=== PATIENT | male | born 1955 | race Caucasian/White ===

== ENCOUNTER 2016-12-14 13:24 | Inpatient (IN) | payer OTHER ==
[~2016-12-14] VITALS: Ht 170.2 cm; Wt 70.3 kg
[~2016-12-14 13:24] MED LIST: ANDROGEL75 G1 TOP; ASPIRIN EC325 M2 PO; CYMBALTA60 M1 PO; FOLIC ACID1 M1 PO; METHADONE10 MG/5 M2 PO; THIAMINE HCL100 M1 PO; TRAZODONE HCL100 M1 PO
--- NOTE | 2016-12-14 13:45 | NUR ---
PT AWARE OF 2.5 HR WAIT
--- NOTE | 2016-12-14 13:52 | NUR ---
RECEIVED 61 YO MALE WITH HX OF ETOH C/O NAUSEA, VOMITING AND DIARRHEA X ONE WEEK. PT ON METHADONE PROGRAM AND HAS NOT BEEN THERE X 8 DAYS. CAREGIVER REPORTS SEVERE WEAKNESS AND MULTIPLE FALLS LAST FEW DAYS. HX OF TBI AND ETOH. NO SI/HI
--- NOTE | 2016-12-14 15:59 | NUR ---
PT ASSESSED BY DENIZ SPANGLER IN ROOM 19. AT BEDSIDE.
--- NOTE | 2016-12-14 16:07 | ED AMS/SEIZURE/WEAK/DIZZY ---
History of Present Illness General Chief Complaint: General Adult Stated Complaint: +NVD, WEAK, ETOH, X 1 WEEK Source: patient, friend (gUARDIAN) Exam Limitations: clinical condition Allergies Coded Allergies: Benzodiazepines (OK WITH SMALL DOSES UP TO 1-2MG Q6H PER PT 03/20/16) LARGE DOSES BUILD UP IN BODY, PT REPORTS ENDING UP ON THE FLOOR URINATING ON HIMSELF diphenhydramine (From BENADRYL) (PER PT FEELS LIKE HE'S CRAWLING OUT OF SKIN & AGITATION 03/20/16) Reconcile Medications Aspirin (Ecotrin*) 325 MG TABLET.DR 1 TAB PO DAILY HEART/BLOOD (Reported) Cholecalciferol (Vitamin D3) (Vitamin D) (Unknown Strength) TABLET (Unknown Dose) PO DAILY SUPPLEMENT (Reported) Folic Acid 1 MG TABLET 1 TAB PO DAILY supplement Gabapentin 300 MG CAPSULE 2 CAP PO TID NERVE PAIN (Reported) Methadone HCl 10 MG/5 ML SOLUTION 90 MG PO QAM PAIN/MENTAL HEALTH (Reported) Testosterone (Androgel) 75 GM GEL..PROCESS CONTROL MANAGER 1 ISAÍAS TOP DAILY HRT (Reported) Trazodone HCl 100 MG TABLET 1 TAB PO QPM SLEEP (Reported) Triage Note: RECEIVED 61 YO MALE WITH HX OF ETOH C/O NAUSEA, VOMITING AND DIARRHEA X ONE WEEK. PT ON METHADONE PROGRAM AND HAS NOT BEEN THERE X 8 DAYS. CAREGIVER REPORTS SEVERE WEAKNESS AND MULTIPLE FALLS LAST FEW DAYS. HX OF TBI AND ETOH. NO SI/HI Triage Nurses Notes Reviewed? yes HPI: This patient is a 61-year-old male with a past medical history including traumatic brain injury, alcohol dependency, and opiate dependency currently on methadone maintenance who presented to the emergency department today brought in by his guardian and friend for evaluation of multiple complaints. This patient is a poor historian at baseline and also seems to have a current mental status alteration. The patient's guardian was able to give a history. She reported that she typically checks in on this patient every other day or so. She reported that he is normally, "well groomed and oriented." She reported that she feels like he is very disoriented and agitated currently. She reported that she had not been provided check on him for a little bit of time because she herself was hurt. She reported that the patient recently had a close friend of his pass away, so he went on, "a monae," and was drinking more alcohol. Because of his alcohol consumption, he was not allowed to get his methadone doses. The patient's guardian reported that it has been at least 10 days since his last methadone dose. She reported that he has been going through withdrawals alone at home. She reported that she was giving him a little bit of alcohol to prevent any withdrawal or seizures as his last alcohol withdrawal seizure was approximately 2 years ago. She reported that he has been nauseous and vomiting approximately 2 times a day. However, she reported that he has not been eating much, so he retches otherwise. Several episodes of diarrhea over the last several days daily. No blood in the stool and no blood in the vomitus noted. The patient denied any headaches, visual changes, numbness or tingling in his extremities, chest pain, difficulty breathing, abdominal pain.THE PATIENT DID ALSO REPORT TACTILE FEVERS and intermittent chills. (PARMJIT SPANGLER PA-C) Vital Signs & Intake/Output Vital Signs & Intake/Output Vital Signs Date Time Temp Pulse Resp B/P Pulse O2 O2 Flow FiO2 Ox Delivery Rate 12/17 0016 98.5 92 20 160/100 95 Room Air 12/16 0800 98.0 80 24 120/70 93 Room Air ED Intake and Output 12/17 0000 12/16 1200 Intake Total 1300 100 Output Total 1000 300 Balance 300 -200 Intake, Oral 1300 100 Number 1 Bowel Movements Output, Urine 1000 300 Patient 155 lb Weight Past History Travel History Traveled to [place] past 21 day No Medical History Any Pertinent Medical History? see below for history Neurological: TBI EENT: NONE Cardiovascular: CARDIAC ABLASION Gastrointestinal: NONE Hepatic: NONE Renal: NONE Musculoskeletal: CHRONIC BACK PAIN Psychiatric: alcohol dependence, anxiety Endocrine: NONE Blood Disorders: NONE Cancer(s): NONE Surgical History Surgical History: hip replacement, spinal fusion Psychosocial History Who do you live with Spouse What is your primary language Montenegrin Tobacco Use: Current Daily Use Daily Tobacco Use Amount/Type: => 5 Cigarettes daily Family History Family History, If Any: MOTHER (Alzheimer's). FATHER (Heart disease). SISTER (Alcoholic and hypertension). Hx Contributory? Yes (PARMJIT SPANGLER PA-C) Review of Systems Review of Systems Constitutional: Reports: see HPI. EENTM: Reports: no symptoms. Respiratory: Reports: no symptoms. Cardiovascular: Reports: no symptoms. GI: Reports: see HPI. Genitourinary: Reports: no symptoms. Musculoskeletal: Reports: no symptoms. Skin: Reports: no symptoms. Neurological/Psychological: Reports: see HPI. All Other Systems: Reviewed and Negative (ANÍBAL SWANSON,PARMJIT) Physical Exam Physical Exam General Appearance: thin, DISHEVELED. oVERWEIGHT. aNXIOUS. iNTOXICATED Comments: Thin, disheveled male who is anxious and intoxicated HEENT: Head normocephalic, moist mucous membranes PERRLA bilaterally. Unable to track for evaluation of EOMI. No nystagmus noted Clear nasal drainage. Nose atraumatic Neck: Supple, no lymphadenopathy Back: Normal inspection Cardiovascular: Regular rate and rhythm with no murmurs, rubs, gallops. No carotid bruits Respiratory: Chest nontender. No respiratory distress. Breath sounds clear to auscultation bilaterally with no wheezes, rales, rhonchi. No diminished breath sounds Abdomen: Normoactive bowel sounds. Tympanic to percussion. Nondistended. Soft. Tenderness to palpation in the right upper quadrant with no rebound or guarding. No peritoneal signs. No McBurney's point tenderness Extremity: Normal and equal pulses. Neuro: Alert to person only. No aphasia. No facial droop. No unilateral weakness 5 out of 5 muscle strength in all extremities Skin: No appreciable rash on exposed skin, skin is warm and dry. Psych: Mood and affect is flat Core Measures ACS in differential dx? Yes CVA/TIA Diagnosis: No Severe Sepsis Present: No Septic Shock Present: No (ANÍBAL SWANSON,PARMJIT) Progress Differential Diagnosis: arrythmia, alcohol intoxication, anemia, benign positional vertigo, CVA/stroke, dehydration, drug intoxication, encephalitis, electrolyte imbalance, GI bleed, hypoglycemia, hypoxia, intracranial Hem., intracranial mass/tumor, meningitis, pneumonia, sepsis, seizure disorder, subarachnoid Hem., UTI/pyelo, vertebrobasilar insuff, Warnicke's encephalopathy, hepatic encephalopathy, alcohol intoxication, alcohol withdrawal, drug withdrawal Diagnostic Imaging: Viewed by Me: Radiology Read, CT Scan. Discussed w/RAD: Radiology Read, CT Scan. Radiology Impression: PATIENT: CLARENCE BLAKELY PRESENT AGE: 61 PATIENT ACCOUNT NO: [id number] : 56 LOCATION: [facility] ORDERING PHYSICIAN: PARMJIT SPANGLER PA-C SERVICE DATE: 12/14/16 EXAM TYPE: CAT - CT HEAD WO IV CONTRAST EXAMINATION: CT HEAD WITHOUT CONTRAST CLINICAL INFORMATION: Fall, head trauma COMPARISON: None. TECHNIQUE: Contiguous axial imaging was performed from the skull base to vertex without intravenous administration of contrast. DLP: 970.79 mGy-cm. FINDINGS: There is mild loss of volume with prominence of the sulci involving the supratentorial and infratentorial brain. It is more than expected for patient's age. There is no evidence of acute intracranial hemorrhage or territorial infarction. No abnormal mass effect or midline shift is seen. Tran to white matter differentiation is well preserved. No extra-axial fluid collections are identified. The ventricles are normal in size. There is no abnormal attenuation within the brain parenchyma. There is no acute skull fracture. The mastoid air cells and visualized portions of the paranasal sinuses are well aerated. IMPRESSION: No acute intracranial hemorrhage. No acute skull fracture. EXAMINATION: CT CERVICAL SPINE WITHOUT AND WITH CONTRAST CLINICAL INFORMATION: Fall, trauma COMPARISON: None. TECHNIQUE: Contiguous axial images of cervical spine obtained without administration of intravenous contrast. DLP: FINDINGS: The vertebral body height and alignment of the cervical spine are normal. There is straightening of cervical spine which can be positional or due to basilar spasm. The cervicocranial, C1-C2 and cervicothoracic junctions are within normal limits. The posterior elements are intact. There is no acute fracture or dislocation of cervical spine. There are small anterior marginal osteophytes at multiple levels , degenerative in nature. The intervertebral disc spaces preserved. The paraspinal soft tissue is within normal limits. Emphysematous changes of the lung apex is noted. No pneumothorax. IMPRESSION: 1. No acute fracture or dislocation of cervical spine. 2. Cervical spine DJD. DICTATED BY: MOON MOSELEY MD DATE/TIME DICTATED:12/14/161658 ASSET PROTECTION ASSOCIATE:FARNAZ DATE/TIME TRANSCRIBED:12/14/161658 CONFIDENTIAL, DO NOT COPY WITHOUT APPROPRIATE AUTHORIZATION. <Electronically signed in Other Vendor System> SIGNED BY: MOON MOSELEY MD 12/14/16 1720, PATIENT: CLARENCE BLAKELY PRESENT AGE: 61 PATIENT ACCOUNT NO: [id number] : 56 LOCATION: [facility] ORDERING PHYSICIAN: PARMJIT SPANGLER PA-C SERVICE DATE: 12/14/16 EXAM TYPE: CAT - CT CERV SPINE WO IV CONTRAST EXAMINATION: CT HEAD WITHOUT CONTRAST CLINICAL INFORMATION: Fall, head trauma COMPARISON: None. TECHNIQUE: Contiguous axial imaging was performed from the skull base to vertex without intravenous administration of contrast. DLP: 970.79 mGy-cm. FINDINGS: There is mild loss of volume with prominence of the sulci involving the supratentorial and infratentorial brain. It is more than expected for patient's age. There is no evidence of acute intracranial hemorrhage or territorial infarction. No abnormal mass effect or midline shift is seen. Tran to white matter differentiation is well preserved. No extra-axial fluid collections are identified. The ventricles are normal in size. There is no abnormal attenuation within the brain parenchyma. There is no acute skull fracture. The mastoid air cells and visualized portions of the paranasal sinuses are well aerated. IMPRESSION: No acute intracranial hemorrhage. No acute skull fracture. EXAMINATION: CT CERVICAL SPINE WITHOUT AND WITH CONTRAST CLINICAL INFORMATION: Fall, trauma COMPARISON: None. TECHNIQUE: Contiguous axial images of cervical spine obtained without administration of intravenous contrast. DLP: FINDINGS: The vertebral body height and alignment of the cervical spine are normal. There is straightening of cervical spine which can be positional or due to basilar spasm. The cervicocranial, C1-C2 and cervicothoracic junctions are within normal limits. The posterior elements are intact. There is no acute fracture or dislocation of cervical spine. There are small anterior marginal osteophytes at multiple levels , degenerative in nature. The intervertebral disc spaces preserved. The paraspinal soft tissue is within normal limits. Emphysematous changes of the lung apex is noted. No pneumothorax. IMPRESSION: 1. No acute fracture or dislocation of cervical spine. 2. Cervical spine DJD. DICTATED BY: MOON MOSELEY MD DATE/TIME DICTATED:12/14/161719 ASSET PROTECTION ASSOCIATE:FARNAZ DATE/TIME TRANSCRIBED:12/14/161719 CONFIDENTIAL, DO NOT COPY WITHOUT APPROPRIATE AUTHORIZATION. <Electronically signed in Other Vendor System> SIGNED BY: MOON MOSELEY MD 12/14/161724, PATIENT: CLARENCE BLAKELY PRESENT AGE: 61 PATIENT ACCOUNT NO: [id number] : 56 LOCATION: [facility] ORDERING PHYSICIAN: PARMJIT SPANGLER PA-C SERVICE DATE: 01/15/17-1603 EXAM TYPE: RAD - XRY-PORTABLE CHEST XRAY EXAMINATION: XR PORTABLE CHEST CLINICAL INFORMATION: Altered mental status. COMPARISON: None. TECHNIQUE: Portable view of the chest was obtained. FINDINGS: No acute abnormality is noted involving the heart, lungs, mediastinum, bony thorax or soft tissues. Spinal fusion hardware demonstrated. IMPRESSION: No evidence of pneumonia. DICTATED BY: RUDY NARANJO MD DATE/TIME DICTATED:12/14/161719 ASSET PROTECTION ASSOCIATE:FARNAZ DATE/TIME TRANSCRIBED:12/14/161719 CONFIDENTIAL, DO NOT COPY WITHOUT APPROPRIATE AUTHORIZATION. <Electronically signed in Other Vendor System> SIGNED BY: RUDY NARANJO MD 12/14/161724 Initial ED EKG: normal axis, normal intervals, nonspecific ST T wave chg, 91 beats for minute, anteriolateral ST-T wave changes compared to prior EKG (ANÍBAL SWANSON,PARMJIT) Plan of Care: Orders Procedure Date/time Status MAGNESIUM 12/17 06 Active HEPATIC FUNCTION PANEL 12/17 06 Active BASIC ELECTROLYTES PLUS BUN&CR 12/17 06 Active Transfer Disposition 12/16 1650 Active THERAPIST ORDERS 12/16 UNK Complete DC OXYGEN 12/16 UNK Complete Therapeutic Activities 12/16 UNK Complete Therapeutic Exercise 12/16 UNK Complete Gait Training 12/16 UNK Complete Discontinue Telemetry/Monitor 12/16 UNK Complete Patient Safety Monitor 12/16 UNK Active SOCIAL WORK CONSULT 12/16 UNK Active OXYGEN SETUP CHG 12/15 UNK Complete OXYGEN 12/15 UNK Complete OXYGEN TRANSPORT 12/15 UNK Complete SUB HSP CARE (15 MIN) 12/15 UNK Complete Current Medications Sig/Kieran Start time Last Medication Dose Stop Time Status Admin Lorazepam 1 MG Q8 12/18 0600 AC (Ativan) 12/18 2201 Potassium Chloride 20 MEQ DAILY 12/16 1000 CAN (K-Dur) Lorazepam 0 Q1P PRN 12/14 2230 AC (Ativan) Laboratory Tests 12/17/16 0738: Sodium Pending, Potassium Pending, Chloride Pending, Carbon Dioxide Pending, Anion Gap Pending, BUN Pending, Creatinine Pending, BUN/Creatinine Ratio Pending , Magnesium Pending, Total Bilirubin Pending, Direct Bilirubin Pending, AST Pending, ALT Pending, Alkaline Phosphatase Pending, Total Protein Pending, Albumin Pending Departure Departure Disposition: STILL A PATIENT Condition: Stable Clinical Impression Primary Impression: Influenza A Secondary Impressions: Altered mental status Qualifiers: Altered mental status type: unspecified Qualified Code: R41.82 - Altered mental status, unspecified Lactic acidosis Pancreatitis Qualifiers: Chronicity: acute Pancreatitis type: alcohol induced Acute pancreatitis complication: unspecified Qualified Code: K85.20 - Alcohol induced acute pancreatitis without necrosis or infection Referrals: NURY DURAN (PCP/Family) Departure Forms: Customer Survey General Discharge Information Admission Note Spoke With: SHELLIE MURRAY MD Documentation of Exam: Documentation of any treatments & extenuating circumstances including Concerns Regarding Discharge (functional status, medication knowledge or non-compliance, living conditions, etc.) that warrant an admission rather than observation: [ This patient is a 61-year-old male with a past medical history including traumatic brain injury, opiate dependency, and alcohol dependency who presented to the emergency department today brought in by his guardian for multiple complaints. This patient has a lactic acidosis to 2.7. Lipase over 1000. Positive influenza. Platelet count 87. The patient is oriented to person only at this time. He'll need to be admitted to the hospital for possible methadone and alcohol withdrawal with a history of alcohol withdrawal seizures, possible pancreatitis, and isolation precautions for influenza A. This patient will need NPO status, IV fluids, CIWA protocol, serial CIWA scoring, follow-up blood cultures, follow-up urine culture, antiemetics, trend labs, possible cardiology consultation, and close monitoring. He may also need PT consultation. Given this patient's history and current clinical status, he is a poor candidate for outpatient treatment as he lives at home alone with minimal help. Premature discharge could prove medically harmful.] (ANÍBAL SAWNSON,PARMJIT) PA/AUTOMOTIVE QUALITY MANAGER Co-Sign Statement Statement: ED Attending supervision documentation- [] I saw and evaluated the patient. I have also reviewed all the pertinent lab results and diagnostic results. I agree with the findings and the plan of care as documented in the PA's/AUTOMOTIVE QUALITY MANAGER's documentation. [X] I have reviewed the ED Record and agree with the PA's/AUTOMOTIVE QUALITY MANAGER's documentation. [] Additions or exceptions (if any) to the PAs/AUTOMOTIVE QUALITY MANAGER's note and plan are summarized below: [] (TING BARNARD,DEJON Treviño) results and diagnostic results. I agree with the findings and the plan of care as documented in the PA's/AUTOMOTIVE QUALITY MANAGER's documentation. [X] I have reviewed the ED Record and agree with the PA's/AUTOMOTIVE QUALITY MANAGER's documentation. [] Additions or exceptions (if any) to the PAs/AUTOMOTIVE QUALITY MANAGER's note and plan are summarized below: [] (TING BARNARD,DEJON Treviño)
[2016-12-14 16:20] LABS: ABSOLUTE BASOPHIL COUNT 0 /CUMM (0.0-0.2); ABSOLUTE EOSINOPHIL COUNT 0 /CUMM (0.0-0.7); ABSOLUTE GRANULOCYTE CT 2.8 /CUMM (1.4-6.5); ABSOLUTE LYMPH COUNT 1.7 /CUMM (1.2-3.4); ABSOLUTE MONOCYTE COUNT 0.5 /CUMM (0.10-0.60); BASOPHIL % 0 % (0.0-2.0); EOSINOPHIL % 0.6 % (0-5); GRANULOCYTE % 55.7 % (42.2-75.2); HEMATOCRIT 46.9 % (42-52); MEAN CORPUSCULAR HGB 27.6 PG (27.0-31.0); MEAN CORPUSCULAR HGB CONC 33.3 G/DL (33.0-37.0); MEAN CORPUSCULAR VOLUME 82.8 FL (80.0-94.0); MEAN PLATELET VOLUME 9.4 FL (7.4-10.4); PLATELET COUNT 87 /CUMM (130-400); RBC DISTRIBUTION WIDTH 19.3 % (11.5-14.5); RED BLOOD CELL CT 5.66 /CUMM (4.70-6.10)
--- NOTE | 2016-12-14 16:46 | NUR ---
IV EST, MEDICATED PER EMAR AND IVF INFUSING. BLOOD AND FLU SWAB SENT. PT REPORTS HE IS UNABLE TO PROVIDE URINE SAMPLE YET, URINAL AT BEDSIDE. PT TO CT VIA STRETCHER.
[2016-12-14] MEDS ORDERED: GABAPENTIN300 M2 PO (16:57)
[2016-12-14] MEDS ORDERED: VITAMIN D2000 UNI1 PO (16:58)
[2016-12-14 17:15] VITALS: BP 141/89
--- NOTE | 2016-12-14 17:15 | NUR ---
CRITICAL TEST RESULTS [id number] CLARENCE BLAKELY 61 M TESTS AND RESULTS: LACTIC ACID 2.7 Results received and read back by: THOMAS ROSE Results received date and time: 12/14/16 1715 The following provider was notified of the results, and read the results back: DENIZ SPANGLER Notified date and time: 12/14/16 at 1650
--- NOTE | 2016-12-14 17:20 | CT SCAN REPORT ---
EXAMINATION: CT HEAD WITHOUT CONTRAST CLINICAL INFORMATION: Fall, head trauma COMPARISON: None. TECHNIQUE: Contiguous axial imaging was performed from the skull base to vertex without intravenous administration of contrast. DLP: 970.79 mGy-cm. FINDINGS: There is mild loss of volume with prominence of the sulci involving the supratentorial and infratentorial brain. It is more than expected for patient's age. There is no evidence of acute intracranial hemorrhage or territorial infarction. No abnormal mass effect or midline shift is seen. Tran to white matter differentiation is well preserved. No extra-axial fluid collections are identified. The ventricles are normal in size. There is no abnormal attenuation within the brain parenchyma. There is no acute skull fracture. The mastoid air cells and visualized portions of the paranasal sinuses are well aerated. IMPRESSION: No acute intracranial hemorrhage. No acute skull fracture. EXAMINATION: CT CERVICAL SPINE WITHOUT AND WITH CONTRAST CLINICAL INFORMATION: Fall, trauma COMPARISON: None. TECHNIQUE: Contiguous axial images of cervical spine obtained without administration of intravenous contrast. DLP: FINDINGS: The vertebral body height and alignment of the cervical spine are normal. There is straightening of cervical spine which can be positional or due to basilar spasm. The cervicocranial, C1-C2 and cervicothoracic junctions are within normal limits. The posterior elements are intact. There is no acute fracture or dislocation of cervical spine. There are small anterior marginal osteophytes at multiple levels, degenerative in nature. The intervertebral disc spaces preserved. The paraspinal soft tissue is within normal limits. Emphysematous changes of the lung apex is noted. No pneumothorax. IMPRESSION: 1. No acute fracture or dislocation of cervical spine. 2. Cervical spine DJD.
--- NOTE | 2016-12-14 17:25 | RADIOLOGY REPORT ---
EXAMINATION: XR PORTABLE CHEST CLINICAL INFORMATION: Altered mental status. COMPARISON: None. TECHNIQUE: Portable view of the chest was obtained. FINDINGS: No acute abnormality is noted involving the heart, lungs, mediastinum, bony thorax or soft tissues. Spinal fusion hardware demonstrated. IMPRESSION: No evidence of pneumonia.
--- NOTE | 2016-12-14 17:52 | NUR ---
DISCUSSED PT'S STATUS WITH DENIZ SPANGLER. PT SCORING 8 ON CIWA SCALE BUT WITH MULTIPLE COMORBIDITIES THAT COULD BE CAUSING HIS SYMPTOMS AND WITH SERUM ETOH GREATER THAN 400. PER PA, OK TO HOLD ATIVAN AT THIS TIME. ALSO PT IS TO BE STRICT NPO AND PER PA SHOULD NOT RECIEVE PO MEDS AT THIS TIME. CAREGIVER AT BEDSIDE, PT REPEATEDLY ASKING TO GO HOME BUT IS REDIRECTABLE AT THIS TIME BY CAREGIVER.
[2016-12-14 19:26] VITALS: BP 137/66
--- NOTE | 2016-12-14 19:26 | NUR ---
REPEAT LACTIC SENT.
--- NOTE | 2016-12-14 19:32 | NUR ---
HEAVY EQUIPMENT OPERATOR D/C PT IS NOW ADMITTED GEN MED. PT ALERT, INTERACTING WITH CAREGIVER, CONTS WITH FREQUENT REQUESTS TO EAT AND TO GO HOME BUT IS REDIRECTABLE FOR SHORT PERIODS. NO INCREASED SX OF WITHDRAWAL. AWAITING HOUSE STAFF EVAL AND BED ASSIGNMENT.
--- NOTE | 2016-12-14 20:07 | NUR ---
PT HAS BED ASSIGNMENT 213
--- NOTE | 2016-12-14 20:18 | History & Physical ---
General Information and HPI Allergies/Medications Allergies: Coded Allergies: Benzodiazepines (OK WITH SMALL DOSES UP TO 1-2MG Q6H PER PT 03/20/16) LARGE DOSES BUILD UP IN BODY, PT REPORTS ENDING UP ON THE FLOOR URINATING ON HIMSELF diphenhydramine (From BENADRYL) (PER PT FEELS LIKE HE'S CRAWLING OUT OF SKIN & AGITATION 03/20/16) Home Med list Aspirin (Ecotrin*) 325 MG TABLET.DR 1 TAB PO DAILY HEART/BLOOD (Reported) Cholecalciferol (Vitamin D3) (Vitamin D) (Unknown Strength) TABLET (Unknown Dose) PO DAILY SUPPLEMENT (Reported) Folic Acid 1 MG TABLET 1 TAB PO DAILY supplement Gabapentin 300 MG CAPSULE 2 CAP PO TID NERVE PAIN (Reported) Methadone HCl 10 MG/5 ML SOLUTION 90 MG PO QAM PAIN/MENTAL HEALTH (Reported) Testosterone (Androgel) 75 GM GEL..CEMENTER MACHINE APPLICATOR 1 ISAÍAS TOP DAILY HRT (Reported) Trazodone HCl 100 MG TABLET 1 TAB PO QPM SLEEP (Reported) Past History Travel History Traveled to [place] past 21 day No Medical History Neurological: TBI EENT: NONE Cardiovascular: CARDIAC ABLASION Gastrointestinal: NONE Hepatic: NONE Renal: NONE Musculoskeletal: CHRONIC BACK PAIN Psychiatric: alcohol dependence, anxiety Endocrine: NONE Blood Disorders: NONE Cancer(s): NONE Surgical History Surgical History: hip replacement, spinal fusion Past Family/Social History Family History Relations & Conditions if any MOTHER (Alzheimer's). FATHER (Heart disease). SISTER (Alcoholic and hypertension). Functional Ability ADLs Independent: dressing, eating, toileting, bathing. Ambulation: independent IADLs Independent: shopping, housework, finances, food prep, telephone, transportation , medication admin. Core Measures/Miscellaneous Cerebrovascular Accident CVA/TIA Diagnosis: No Severe Sepsis Severe Sepsis Present: No Septic Shock Septic Shock Present: No
--- NOTE | 2016-12-14 20:57 | NUR ---
REPORT CALLED TO [facility] AND TRANSPORT BOOKED. DR DELGADO AT BEDSIDE STATING PT CANNOT GO TO [facility] DUE TO EKG CHANGES ON INTIAL EKG. WILL REPEAT EKG.
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
--- NOTE | 2016-12-14 21:08 | NUR ---
REPEAT EKG DONE AND HANDED TO HOUSE STAFF AT BEDSIDE. AWAITING INTERPRETATION.
--- NOTE | 2016-12-14 21:09 | NUR ---
URINE TRIO SENT TO LAB.
--- NOTE | 2016-12-14 21:14 | NUR ---
PER DR DELGADO PT TO GO TO TELE FOR 24 HOURS AND CARDIOLOGY CLEARANCE. PT TO BE A HOLD IN THE ED. RESIDENTS STILL IN WITH PT AT THIS TIME.
--- NOTE | 2016-12-14 21:36 | NUR ---
REPEAT TROP SENT. HOUSE STAFF REMAINS AT BEDSIDE.
[2016-12-14 21:38] VITALS: BP 161/88
--- NOTE | 2016-12-14 23:03 | Admission Certification ---
Admission Certification Certification Statement - As attending physician, I certify that at the time of - admission, based on clinical presentation, severity of - symptoms, need for further diagnostic testing and - therapeutic interventions, and risk of adverse outcomes - without in-hospital treatment, in my clinical assessment, - this patient requires an acute hospital stay for a minimum - of two nights or longer. I have also considered psychsocial - factors such as support system, advanced age, financial - issues, cognitive issues, and failed out-patient treatments, - past re-admission history, safety of patient, and lack of - compliance as applicable. Specific rationale supporting this admission is: Alcohol withdrawal, opiate withdrawal, transaminitis.
[2016-12-14 23:11] VITALS: BP 136/83
[2016-12-14 23:12] VITALS: BP 136/83
[2016-12-14 23:45] VITALS: BP 141/84
[2016-12-15] VITALS (8 sets, daily range): BP systolic 140–146; BP diastolic 82–96
--- NOTE | 2016-12-15 00:50 | NUR ---
PATIENT INFORMED MULTIPLE TIMES BY SITTER THAT ORDER FOR NPO (ONLY ICE CHIPS). PATIENT INFORMED BY THIS RN AND SHOWN MD ORDER FOR NPO. PATIENT AGREEABLE. CALM AND COOPERATIVE. SLEEPING INTERMITTENTLY.
--- NOTE | 2016-12-15 02:58 | NUR ---
IPOC CONTINUED AND UTD.
--- NOTE | 2016-12-15 03:36 | NUR ---
LABS DRAWN AND SENT, LAV AND SST
[2016-12-15 03:41] LABS: ABSOLUTE BASOPHIL COUNT 0 /CUMM (0.0-0.2); ABSOLUTE EOSINOPHIL COUNT 0 /CUMM (0.0-0.7); ABSOLUTE GRANULOCYTE CT 1.6 /CUMM (1.4-6.5); ABSOLUTE MONOCYTE COUNT 0.3 /CUMM (0.10-0.60); MEAN CORPUSCULAR HGB 27.8 PG (27.0-31.0)
[2016-12-15 03:45] LABS: ABSOLUTE LYMPH COUNT 1.2 /CUMM (1.2-3.4); BASOPHIL % 0.9 % (0.0-2.0); EOSINOPHIL % 1.2 % (0-5); GRANULOCYTE % 49.4 % (42.2-75.2); MEAN CORPUSCULAR HGB CONC 33.3 G/DL (33.0-37.0); MEAN CORPUSCULAR VOLUME 83.7 FL (80.0-94.0); MEAN PLATELET VOLUME 9.2 FL (7.4-10.4); PLATELET COUNT 61 /CUMM (130-400); RBC DISTRIBUTION WIDTH 19.2 % (11.5-14.5); RED BLOOD CELL CT 4.48 /CUMM (4.70-6.10); WHITE BLOOD CELL COUNT 3.2 /CUMM (4.8-10.8)
[2016-12-15 03:52] LABS: HEMATOCRIT 37.5 % (42-52)
--- NOTE | 2016-12-15 03:57 | NUR ---
CRITICAL TEST RESULTS [id number] CLARENCE BLAKELY 61 M TESTS AND RESULTS: HCT DROP TO TO 37.5 Results received and read back by: CHIKA DIEGO Results received date and time: 12/15/16 0357 The following provider was notified of the results, and read the results back: house staff Notified date and time: 12/15/16 at 0357
[2016-12-15 04:04] LABS: PT 12.9 SEC (9.4-12.5)
--- NOTE | 2016-12-15 05:57 | NUR ---
PATIENT CONTINUES TO SLEEP AT THIS TIME W/ SITTER AT BEDSIDE. REGULAR RESPIRATIONS NOTED. REMAINS ON DROPELET PRECAUTIONS FOR DX FLU. HR: 78 ON MONITOR, SINUS.
--- NOTE | 2016-12-15 06:24 | PN- Housestaff ---
Subjective Review of Systems Constitutional: Reports: see HPI. Objective Last 24 Hrs of Vital Signs/I&O Vital Signs Date Time Temp Pulse Resp B/P Pulse O2 O2 Flow FiO2 Ox Delivery Rate 12/15 0445 97.3 88 18 143/88 12/15 0445 97.3 88 18 143/88 96 Room Air 12/15 0249 97.1 86 146/92 96 12/15 0245 97.4 87 18 141/84 12/14 2345 97.4 87 18 141/84 12/14 2345 97.4 87 18 141/84 94 12/14 2312 97.8 93 18 136/83 96 Room Air 12/14 2311 97.8 93 18 136/83 12/14 2138 96.1 98 18 161/88 12/14 2136 96.1 98 18 161/88 94 Room Air 12/14 192 96.3 89 18 137/66 12/14 192 96.3 89 18 137/66 96 Room Air 12/14 1751 96.4 96 16 137/76 96 Room Air 12/14 1716 96 12/14 1715 97.5 94 18 141/89 12/14 1550 97.5 12/14 1545 94 18 141/89 96 Room Air 12/14 1353 97.6 100 20 129/83 96 Room Air Intake & Output 12/15 0800 12/15 0000 12/14 1600 Intake Total 3560 Output Total 400 Balance 3160 Intake, IV 3500 Intake, Oral 60 Output, Urine 400 Patient 70.307 kg 72.575 kg Weight Current Medications: Current Medications Sig/Kieran Start time Last Medication Dose Route Stop Time Status Admin Cyanocobalamin/ 1 BAG ONCE ONE 12/14 2199 DC 12/14 Thiamine/Pyridoxine IV 12/15 0559 2301 Sodium Chloride 1,000 ML Folic Acid 1 MG DAILY 12/14 1741 DC PO 12/16 1001 Gabapentin 0 .STK-MED ONE 12/14 2304 DC PO Gabapentin 600 MG TID 12/140 AC 12/14 PO 2309 Lactated Ringer's 1,000 ML ONCE ONE 12/14 2245 CAN IV 12/15 0844 Lactated Ringer's 1,000 ML Q10H 12/14 2245 AC 12/14 IV 12/15 0844 2309 Lorazepam 0 .STK-MED ONE 01/16 0621 DC PO Lorazepam 2 MG Q6 12/14 2359 AC 12/14 PO 2309 Lorazepam 0 .STK-MED ONE 12/14 2304 DC PO Lorazepam 0 Q1P PRN 12/14 2230 AC IV Lorazepam 2 MG Q2P PRN 12/14 1745 DC PO Lorazepam 1 MG Q2P PRN 12/14 1745 DC PO Methadone HCl 90 MG ONCE ONE 12/15 0800 AC PO 12/15 0801 Multivitamins 1 TAB DAILY 12/14 1741 AC PO Nicotine 0 .STK-MED ONE 12/14 1634 DC TOP Nicotine 21 MG DAILY 12/14 1632 AC 12/14 TOP 1637 Non-Formulary 0 SEE ADMIN CRITERIA 12/14 2200 UNVr Medication ANY Ondansetron HCl 0 .STK-MED ONE 12/14 1628 DC .ROUTE Ondansetron HCl 4 MG ONCE ONE 12/14 1615 DC 12/14 IV 12/14 1616 1637 Sodium Chloride 1,000 ML .Q20H 12/14 1945 DC 12/14 IV 2042 Sodium Chloride 1,000 ML BOLUS ONE 12/14 1800 DC 12/14 IV 12/14 1859 1753 Sodium Chloride 1,000 ML BOLUS ONE 12/14 1615 DC 12/14 IV 12/14 1714 1637 Thiamine HCl 0 .STK-MED ONE 12/14 2245 DC .ROUTE Thiamine HCl 100 MG DAILY 12/14 1741 DC PO 12/16 1001 Last 24 Hrs of Lab/Rl Results Last 24 Hrs of Labs/Mics: Laboratory Tests 12/15/16 0600: PT Cancelled, INR Cancelled 12/15/16 0344: PT 12.9 H, INR 1.23 H 12/15/16 0334: Anion Gap 7, Estimated GFR > 60, BUN/Creatinine Ratio 10.0, Phosphorus 4.1, Magnesium 1.3 L, Triglycerides 60, Cholesterol 141, LDL Cholesterol, Calc 56 L , HDL Cholesterol 73 H, Cholesterol/HDL Ratio 2, CBC w Diff NO MAN DIFF REQ, RBC 4.48 L, MCV 83.7, MCH 27.8, RDW 19.2 H, MPV 9.2, Gran % 49.4, Lymphocytes % 38.9, Monocytes % 9.6 H, Eosinophils % 1.2, Basophils % 0.9, Absolute Granulocytes 1.6, Absolute Lymphocytes 1.2, Absolute Monocytes 0.3, Absolute Eosinophils 0, Absolute Basophils 0, PUBS MCHC 33.3, Hepatitis A IgM Ab Pending, Hep Bs Antigen Pending, Hep B Core IgM Ab Conf Pending, Hepatitis C Antibody Pending 12/14/162130: Troponin I 0.01 12/14/162034: Urine Opiates Screen < 100.00, Methadone Screen 685 H, Barbiturate Screen < 60, Ur Phencyclidine Scrn < 6.00, Amphetamines Screen < 100, U Benzodiazepines Scrn < 85, Urine Cocaine Screen < 50, Urine Cannabis Screen < 5.00, Urine Color YEL, Urine Clarity CLEAR, Urine pH 7.5, Ur Specific [place] 1.015, Urine Protein 30 H, Urine Ketones NEG, Urine Nitrite NEG, Urine Bilirubin NEG, Urine Urobilinogen 1.0, Ur Leukocyte Esterase NEG, Ur Microscopic SEDIMENT EXAMINED, Urine RBC RARE , Urine WBC RARE, Ur Epithelial Cells RARE, Urine Hemoglobin NEG, Urine Glucose NEG 12/14/16 1924: Lactic Acid 1.7 12/14/16 1607: Lactic Acid 2.7 H 12/14/16 1607: Ammonia < 9 L 12/14/16 1607: Anion Gap 15, Estimated GFR > 60, BUN/Creatinine Ratio 10.0, Glucose 101 H, Calcium 8.8, Phosphorus 4.5, Magnesium 1.7, Total Bilirubin 0.6, Direct Bilirubin 0.5 H, AST 248 H, ALT 169 H, Alkaline Phosphatase 129 H, Troponin I < 0.01, Total Protein 8.3 H, Albumin 4.4, Globulin 3.9, Albumin/Globulin Ratio 1.1, Amylase 81, Lipase 1040 H, CBC w Diff MAN DIFF ORDERED, RBC 5.66, MCV 82.8, MCH 27.6, RDW 19.3 H, MPV 9.4, Gran % 55.7, Lymphocytes % 33.8, Monocytes % 9.9 H, Eosinophils % 0.6, Basophils % 0 L, Absolute Granulocytes 2.8, Segmented Neutrophils 51, Band Neutrophils 2, Absolute Lymphocytes 1.7, Lymphocytes 37, Monocytes 9, Absolute Monocytes 0.5, Absolute Eosinophils 0, Basophils 1, Absolute Basophils 0, Platelet Estimate DECREASED, Anisocytosis 1+, Microcytic Cells 1+, PUBS MCHC 33.3, Serum Alcohol 418.0 Microbiology 12/14 1615 BLOOD: Blood Culture - RECD 12/14 1607 BLOOD: Blood Culture - RECD 12/14 1545 STOOL: Stool Culture - COLB Lines/Diet/Fluids Restraints: none
--- NOTE | 2016-12-15 06:25 | NUR ---
PATIENT MEDICATED W/ ATIVAN 2MG PO PER EMAR. TOLERATED WELL. PATIENT NOTED MORE TREMEROUS THAN PREVIOUS CIWA, LESS ANXIOUS AND AGITATED. DENIES ANY COMPLAINTS.
--- NOTE | 2016-12-15 06:29 | NUR ---
IPOC CONTINUED AND UTD.
--- NOTE | 2016-12-15 08:00 | NUR ---
pt is A+Ox3, denies pain. no c/o SOB. remains stable. calm and cooperative. no attempts to get OOB.
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
--- NOTE | 2016-12-15 10:03 | NUR ---
O2 sat decreased to 88%RA. no SOB. no cough or congestion. LS CTA. placed on 2L O2. sat increased to 92-94% on 2L. updated
--- NOTE | 2016-12-15 10:21 | NUR ---
SPOKE WITH . 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
--- NOTE | 2016-12-15 12:59 | ULTRASOUND REPORT ---
EXAMINATION: US ABDOMEN LIMITED CLINICAL INFORMATION: Nausea, vomiting in setting of alcohol abuse. Presumptive diagnosis of pancreatitis versus cholelithiasis. COMPARISON: None TECHNIQUE: Real-time imaging of the right upper quadrant abdominal viscera. FINDINGS: PANCREAS: The pancreatic body, and portions of the head and tail are visualized and appear slightly heterogeneous without focal mass or pancreatic ductal dilatation seen. The remainder of the pancreas is obscured by overlying bowel gas. Pancreatic duct measures 0.2 cm in maximal diameter. No peripancreatic fluid collection is seen. LIVER: Diffuse coarsening of the hepatic echotexture is seen with patchy areas of increased echogenicity, consistent with hepatic steatosis. There is a 1.1 x 1.0 x 1.5 cm simple appearing cyst in the right lobe of the liver at the hepatic dome. The liver demonstrates normal size and contour. No suspicious focal lesion or intrahepatic biliary duct dilatation. GALLBLADDER: There are several tiny layering calcified and shadowing gallstones seen within the gallbladder. Echogenic bile is also seen. The the gallbladder wall is borderline normal in size, measuring 0.3 cm in thickness. No reproducible gallbladder wall edema is seen. No sonographic Whiteside sign is elicited while scanning over the gallbladder. COMMON BILE DUCT: Normal in caliber measuring 0.5 cm in diameter. RIGHT KIDNEY: Normal. No hydronephrosis. No renal calculi or focal parenchymal lesions. The kidney measures 11.4 cm in maximum dimension. FREE FLUID: None IMPRESSION: 1. Multiple tiny gallstones and small amount of echogenic bile are seen within the gallbladder. No superimposed specific ultrasound findings are seen to suspect acute cholecystitis. If clinical suspicion remains high, consider further assessment with HIDA scan. 2. Heterogeneous appearance of the pancreatic body and visualized portions of the head and tail. These are nonspecific findings but may be compatible with the clinical suspicion of pancreatitis. No peripancreatic fluid collections are noted. 3. No abnormal biliary dilatation.
--- NOTE | 2016-12-15 13:35 | NUR ---
BLOOD DRAWN AND SENT TO LAB. SST X 2
--- NOTE | 2016-12-15 14:44 | NUR ---
PT WAS SEEN BY PT. AMBULATED WITH ASSIST X1 WITH RW
--- NOTE | 2016-12-15 14:53 | NUR ---
PSYCH IN TO SEE PATIENT
--- NOTE | 2016-12-15 15:12 | NUR ---
BED ASSIGNMENT 110 OVERFLOW
--- NOTE | 2016-12-15 15:27 | NUR ---
ASSUMING CARE OF PT AT THIS TIME
--- NOTE | 2016-12-15 17:07 | Cons- Psychiatry ---
Psychiatric Consult Date of Consult: 12/15/16 Reason for Consult: "EtOH abuse" History of Present Illness: 61-year-old male presents to the ED on 12/14/2016, at 1345, with a chief complaint of requesting alcohol withdrawal, with nausea, vomiting and diarrhea for one week. The patient had not been doing methadone clinic in 8 days. Per the triage note, the patient's caregiver reports severe weakness and multiple falls in the last few days. Allergies: Coded Allergies: Benzodiazepines (OK WITH SMALL DOSES UP TO 1-2MG Q6H PER PT 03/20/16) LARGE DOSES BUILD UP IN BODY, PT REPORTS ENDING UP ON THE FLOOR URINATING ON HIMSELF diphenhydramine (From BENADRYL) (PER PT FEELS LIKE HE'S CRAWLING OUT OF SKIN & AGITATION 03/20/16) Current Medications: Current Medications Sig/Kieran Start time Last Medication Dose Route Stop Time Status Admin Cyanocobalamin/ 1 BAG ONCE ONE 12/14 2200 DC 12/14 Thiamine/Pyridoxine IV 12/15 0559 2301 Sodium Chloride 1,000 ML Folic Acid 1 MG DAILY 12/14 1741 DC PO 12/16 1001 Gabapentin 0 .STK-MED ONE 12/15 1602 DC PO Gabapentin 0 .STK-MED ONE 12/15 1012 DC PO Gabapentin 0 .STK-MED ONE 12/14 2304 DC PO Gabapentin 600 MG TID 12/14 2200 AC 12/15 PO 1615 Lactated Ringer's 1,000 ML ONCE ONE 12/14 2245 CAN IV 12/15 0844 Lactated Ringer's 1,000 ML Q10H 12/14 2245 DC 12/14 IV 12/15 0844 2309 Lorazepam 2 MG Q8 12/15 1400 AC 12/15 PO 1323 Lorazepam 0 .STK-MED ONE 12/15 1320 DC PO Lorazepam 0 .STK-MED ONE 12/15 0621 DC PO Lorazepam 2 MG Q6 12/14 2359 DC 12/15 PO 0625 Lorazepam 0 .STK-MED ONE 12/14 2304 DC PO Lorazepam 0 Q1P PRN 12/14 2230 AC IV Lorazepam 2 MG Q2P PRN 12/14 1745 DC PO Lorazepam 1 MG Q2P PRN 12/14 1745 DC PO Magnesium Oxide 0 .STK-MED ONE 12/15 1603 DC PO Magnesium Oxide 400 MG DAILY 12/15 1532 AC 12/15 PO 1615 Methadone HCl 90 MG DAILY 12/16 1000 AC PO Methadone HCl 0 .STK-MED ONE 12/15 0840 DC PO Methadone HCl 0 .STK-MED ONE 12/15 0837 DC PO Methadone HCl 0 .STK-MED ONE 12/15 0837 DC PO Methadone HCl 90 MG ONCE ONE 12/15 0800 DC 12/15 PO 12/15 0801 0815 Multivitamins 1 TAB DAILY 12/14 1741 AC 12/15 PO 1152 Nicotine 21 MG 1630 12/15 1630 AC 12/15 TOP 1615 Nicotine 0 .STK-MED ONE 12/15 1603 DC TOP Nicotine 21 MG DAILY 12/14 1632 DC 12/14 TOP 1637 Potassium Chloride 0 .STK-MED ONE 12/15 1602 DC PO Potassium Chloride 20 MEQ DAILY 12/15 1535 AC 12/15 PO 1615 Sodium Chloride 1,000 ML .Q20H 12/14 1945 DC 12/14 IV 2042 Sodium Chloride 1,000 ML BOLUS ONE 12/14 1800 DC 12/14 IV 12/14 1859 1753 Sodium Chloride 1,000 ML BOLUS ONE 12/14 1615 DC 12/14 IV 12/14 1714 1637 Testosterone 7.5 GM 1000 12/15 1000 AC 12/15 TOP 1100 Thiamine HCl 0 .STK-MED ONE 12/14 2245 DC .ROUTE Thiamine HCl 100 MG DAILY 12/14 1741 DC PO 12/16 1001 Past History Past Medical History Neurological: TBI EENT: NONE Cardiovascular: CARDIAC ABLASION Gastrointestinal: NONE Hepatic: NONE Renal: NONE Musculoskeletal: CHRONIC BACK PAIN Psychiatric: alcohol dependence, anxiety Endocrine: NONE Blood Disorders: NONE Cancer(s): NONE Past Surgical History Surgical History: hip replacement, spinal fusion Psychiatric Treatment History Psych Treatment Psychiatric Treatment No (TBD) Substance Use/Abuse History Drug Use/Abuse Substances Used/Abused Yes Substance Used/Abused Alcohol Substance Abuse Treatment Substance Abuse Treatment Past Substance Abuse [place] Yes Inpatient Treatment No Outpatient Treatment No Assessment/Plan Mental Status Mental Status Exam: I visited the patient today, 12/15/2016, in ER 21. His supportive friend, Ciara, was present. The patient was initially sleeping, but was easily arousable. He is alert and oriented 4. He denies any symptoms of depression or anxiety. He denies auditory or visual or tactile hallucinations, and presents no alaina delusions. He reports that he feels safe here. He denies any current or history of suicidal or homicidal ideation. However, Ciara reminds the patient that he had some suicidal ideation at the time that his , but we are unable to determine how long ago this occurred. The patient confirms that he is on methadone 90 mg daily, and trazodone 100 mg by mouth at bedtime for insomnia, but these will need to be confirmed by house staff. He reports he takes Neurontin for neuropathic pain. Lab Results: Laboratory Tests 12/15 12/15 12/15 12/15 1332 1332 0600 0344 Chemistry Vitamin B12 (239 - 931 pg/mL) 583 Vit D 1,25-Dihyd Total Pending 1,25 Dihydroxy Vit D2 Pending 1,25 Dihydroxy Vit D3 Pending Coagulation PT (9.4 - 12.5 SEC) Cancelled 12.9 H INR (0.90 - 1.17) Cancelled 1.23 H 12/15 12/14 0334 2131 Chemistry Sodium (137 - 145 mmol/L) 141 Potassium (3.5 - 5.1 mmol/L) 3.5 Chloride (98 - 107 mmol/L) 105 Carbon Dioxide (22 - 30 mmol/L) 29 Anion Gap (5 - 16) 7 BUN (9 - 20 mg/dL) 5 L Creatinine (0.7 - 1.2 mg/dL) 0.5 L Estimated GFR (>60 ml/min) > 60 BUN/Creatinine Ratio (7 - 25 %) 10.0 Phosphorus (2.5 - 4.5 mg/dL) 4.1 Magnesium (1.6 - 2.3 mg/dL) 1.3 L Troponin I (<0.11 ng/ml) 0.01 Triglycerides (<150 mg/dL) 60 Cholesterol (< 200 MG/DL) 141 LDL Cholesterol, Calc (65 - 129 mg/dL) 56 L HDL Cholesterol (40 - 60 mg/dL) 73 H Cholesterol/HDL Ratio (0.00 - 4.88 %) 2 Hematology CBC w Diff NO MAN DIFF REQ WBC (4.8 - 10.8 /CUMM) 3.2 L RBC (4.70 - 6.10 /CUMM) 4.48 L Hgb (14.0 - 18.0 G/DL) 12.5 L Hct (42 - 52 %) 37.5 L MCV (80.0 - 94.0 FL) 83.7 MCH (27.0 - 31.0 PG) 27.8 RDW (11.5 - 14.5 %) 19.2 H Plt Count (130 - 400 /CUMM) 61 L MPV (7.4 - 10.4 FL) 9.2 Gran % (42.2 - 75.2 %) 49.4 Lymphocytes % (20.5 - 51.1 %) 38.9 Monocytes % (1.7 - 9.3 %) 9.6 H Eosinophils % (0 - 5 %) 1.2 Basophils % (0.0 - 2.0 %) 0.9 Absolute Granulocytes (1.4 - 6.5 /CUMM) 1.6 Absolute Lymphocytes (1.2 - 3.4 /CUMM) 1.2 Absolute Monocytes (0.10 - 0.60 /CUMM) 0.3 Absolute Eosinophils (0.0 - 0.7 /CUMM) 0 Absolute Basophils (0.0 - 0.2 /CUMM) 0 PUBS MCHC (33.0 - 37.0 G/DL) 33.3 Serology Hepatitis A IgM Ab (NONREACTIVE) NONREACTIVE Hep Bs Antigen (NONREACTIVE) NONREACTIVE Hep B Core IgM Ab Conf (NONREACTIVE) NONREACTIVE Hepatitis C Antibody (NONREACTIVE) REACTIVE H 12/144 Chemistry Lactic Acid (0.7 - 2.1 mmol/L) 1.7 Toxicology Urine Opiates Screen (>2000 NG/ML) < 100.00 Methadone Screen (>300 NG/ML) 685 H Barbiturate Screen (>200 NG/ML) < 60 Ur Phencyclidine Scrn (>25 NG/ML) < 6.00 Amphetamines Screen (>1000 NG/ML) < 100 U Benzodiazepines Scrn (>200 NG/ML) < 85 Urine Cocaine Screen (>300 NG/ML) < 50 Urine Cannabis Screen (>50 NG/ML) < 5.00 Urines Urine Color (YEL,AMB,STR) YEL Urine Clarity (CLEAR) CLEAR Urine pH (5.0 - 8.0) 7.5 Ur Specific [place] (1.001 - 1.035) 1.015 Urine Protein (NEG,<30 MG/DL) 30 H Urine Ketones (NEG) NEG Urine Nitrite (NEG) NEG Urine Bilirubin (NEG) NEG Urine Urobilinogen (0.1 - 1.0 EU/dl) 1.0 Ur Leukocyte Esterase (NEG) NEG Ur Microscopic SEDIMENT EXAMINED Urine RBC (0 - 5 /HPF) RARE Urine WBC (0 - 2 /HPF) RARE Ur Epithelial Cells (NONE,FEW) RARE Urine Hemoglobin (NEG) NEG Urine Glucose (N MG/DL) NEG Diffential Diagnosis: Alcohol use disorder, severe, recurrent Possible opiate use disorder, currently on methadone therapy Impression: The patient had been sent to [facility] 2 days before his presentation to [facility] by his girlfriend, Ciara. She reports that they treated him and then called a cab for the patient. She beleives that he was sent home in a delirious state, which she was not immediately aware of. Ciara reports that the patient has a son in [facility] (short-term), who is interested in his care. She states that he also has an older sister, who was unable to care for him, but still has for him. The patient has a history of TBI, and also a back injury in 1985 sustained in an accident while working for [employer]. He had major back surgery to revise old hardware in the summer of 2015 at [facility]. The patient lives at [facility] in [place], although Ciara no longer lives there with him. Per the friend, the patient has had a series of falls. He has difficulties with short-term memory, probably secondary to traumatic brain injury. She states that he has not been caring for himself, nor paying the bills, but states that he is able to live independently when he is not drinking. Ciara reports that the patient has been on a "monae for 2 weeks,", and has not had his methadone in 10 days. The patient used to attend AA meetings. Per the H&P allergy report, the patient is allergic to benzodiazepines, but is able to tolerate small doses. He is also allergic to diphenhydramine. CT of the head and spine, 12/14/2016: IMPRESSION: No acute intracranial hemorrhage. No acute skull fracture. No acute fracture or dislocation of cervical spine. Cervical spine DJD. Provisional Treatment Plan: 1. Please restart daily thiamine, folic acid and multivitamin. This can be ordered in a "banana bag," which can be converted to PO when he is able to take that form. The ETOH Detox order set/protocol provides for thiamine 100 mg PO daily, folic acid 1 mg PO daily and one multivitamin tab PO daily. 2. Please follow the ETOH Detox order set for lorazepam taper management, as well as PRN dosing. 3. Social work is following the patient, and we have met with the patient's girlfriend, Ciara, who is not his healthcare artists' booking representative, but is interested in assuming this role. 4. We have noted that the patient has elevated lipase, 1040 on 12/14/16, and his hematocrit dropped by 9.4 since yesterday. Please consider a GI bleed in your differential diagnosis. 5. Please confirm the patient's current methadone dosing with the [facility] in [place], and restart this medication when confirmed. 6. Please replete potassium and magnesium to the upper portion of the normal range, in case QTC prolonging agents, such as haloperidol are necessary to manage hallucinosis or delirium tremens. We will continue to follow along with you, but please advise if other psychiatric matters arise. Thank you for asking us to participate in Booker's care. Kelvin Li APRN, pager [phone].
--- NOTE | 2016-12-15 17:52 | Cons- Cardiology ---
General Information and HPI Consulting Request Date of Consult: 12/15/16 Requested By: JANIS BARNARD,JENNIFER Spencer Reason for Consult: Abnormal EKG History of Present Illness: The patient is a 61-year-old male with history of alcohol and opiate abuse, TBA 2004, , supraventricular tachycardia status post ablation 2. He was brought to the emergency department for methadone withdrawal. He lost a close friend 10 days ago after which she started drinking heavily, and he did not get his methadone for 6 days. 3 days prior to admission he was found by a friend in his home disoriented with Xarelto clothing. He was taken to [facility] where he was evaluated and discharged home. The following 3 days she had nausea, vomiting, diarrhea, poor oral intake, and mechanical falls. He was admitted for metabolic alkalosis secondary to intractable nausea, vomiting, and diarrhea in the setting of methadone withdrawal and alcohol intoxication. I am consulted for abnormal EKG. The patient is sleepy at this time, and he is a poor historian. He denies any chest pain or palpitations. 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 His only outpatient cardiac medication is aspirin. Allergies/Medications Allergies: Coded Allergies: Benzodiazepines (OK WITH SMALL DOSES UP TO 1-2MG Q6H PER PT 03/20/16) LARGE DOSES BUILD UP IN BODY, PT REPORTS ENDING UP ON THE FLOOR URINATING ON HIMSELF diphenhydramine (From BENADRYL) (PER PT FEELS LIKE HE'S CRAWLING OUT OF SKIN & AGITATION 03/20/16) Home Med List: Aspirin (Ecotrin*) 325 MG TABLET.DR 1 TAB PO DAILY HEART/BLOOD (Reported) Cholecalciferol (Vitamin D3) (Vitamin D) (Unknown Strength) TABLET (Unknown Dose) PO DAILY SUPPLEMENT (Reported) Folic Acid 1 MG TABLET 1 TAB PO DAILY supplement Gabapentin 300 MG CAPSULE 2 CAP PO TID NERVE PAIN (Reported) Methadone HCl 10 MG/5 ML SOLUTION 90 MG PO QAM PAIN/MENTAL HEALTH (Reported) Testosterone (Androgel) 75 GM GEL..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 1 ISAÍAS TOP DAILY HRT (Reported) Trazodone HCl 100 MG TABLET 1 TAB PO QPM SLEEP (Reported) Current Medications: Current Medications Sig/Kieran Start time Last Medication Dose Route Stop Time Status Admin Cyanocobalamin/ 1 BAG ONCE ONE 12/14 2200 DC 12/14 Thiamine/Pyridoxine IV 12/15 0559 2301 Sodium Chloride 1,000 ML Folic Acid 1 MG DAILY 12/14 1741 DC PO 12/16 1001 Gabapentin 0 .STK-MED ONE 12/15 1602 DC PO Gabapentin 0 .STK-MED ONE 12/15 1012 DC PO Gabapentin 0 .STK-MED ONE 12/14 2304 DC PO Gabapentin 600 MG TID 12/14 2200 AC 12/15 PO 1615 Lactated Ringer's 1,000 ML ONCE ONE 12/14 2245 CAN IV 12/15 0844 Lactated Ringer's 1,000 ML Q10H 12/14 2245 DC 12/14 IV 12/15 0844 2309 Lorazepam 2 MG Q8 12/15 1400 AC 12/15 PO 1323 Lorazepam 0 .STK-MED ONE 12/15 1320 DC PO Lorazepam 0 .STK-MED ONE 12/15 0621 DC PO Lorazepam 2 MG Q6 12/14 2359 DC 12/15 PO 0625 Lorazepam 0 .STK-MED ONE 12/14 2304 DC PO Lorazepam 0 Q1P PRN 12/14 2230 AC IV Lorazepam 2 MG Q2P PRN 12/14 1745 DC PO Lorazepam 1 MG Q2P PRN 12/14 1745 DC PO Magnesium Oxide 0 .STK-MED ONE 12/15 1603 DC PO Magnesium Oxide 400 MG DAILY 12/15 1532 AC 12/15 PO 1615 Methadone HCl 90 MG DAILY 12/16 1000 AC PO Methadone HCl 0 .STK-MED ONE 12/15 0840 DC PO Methadone HCl 0 .STK-MED ONE 12/15 0837 DC PO Methadone HCl 0 .STK-MED ONE 12/15 0837 DC PO Methadone HCl 90 MG ONCE ONE 12/15 0800 DC 12/15 PO 12/15 0801 0815 Multivitamins 1 TAB DAILY 12/14 1741 AC 12/15 PO 1152 Nicotine 21 MG 1630 12/15 1630 AC 12/15 TOP 1615 Nicotine 0 .STK-MED ONE 12/15 1603 DC TOP Nicotine 21 MG DAILY 12/14 1632 DC 12/14 TOP 1637 Potassium Chloride 0 .STK-MED ONE 12/15 1602 DC PO Potassium Chloride 20 MEQ DAILY 12/15 1535 AC 12/15 PO 1615 Sodium Chloride 1,000 ML .Q20H 12/14 1945 DC 12/14 IV 2042 Sodium Chloride 1,000 ML BOLUS ONE 12/14 1800 DC 12/14 IV 12/14 1859 1753 Testosterone 7.5 GM 1000 12/15 1000 AC 12/15 TOP 1100 Thiamine HCl 0 .STK-MED ONE 12/14 2245 DC .ROUTE Thiamine HCl 100 MG DAILY 12/14 1741 DC PO 12/16 1001 Review of Systems Review of Systems: No rash. No tremor. No melena. No diaphoresis. No hemoptysis. All other systems were reviewed, and were noted to be negative. Past History Travel History Traveled to [place] past 21 day No Medical History Blood Transfusion Hx: No Neurological: TBI EENT: NONE Cardiovascular: CARDIAC ABLASION Gastrointestinal: NONE Hepatic: NONE Renal: NONE Musculoskeletal: CHRONIC BACK PAIN Psychiatric: alcohol dependence, anxiety Endocrine: NONE Blood Disorders: NONE Cancer(s): NONE Surgical History Surgical History: hip replacement, spinal fusion Family History Relations & Conditions If Any: MOTHER (Alzheimer's). FATHER (Heart disease). SISTER (Alcoholic and hypertension). Psychosocial History Where Do You Live? Home Services at Home: None Smoking Status: Unknown If Ever Smoked Functional Ability ADLs Independent: dressing, eating, toileting, bathing. Ambulation: independent IADLs Independent: shopping, housework, finances, food prep, telephone, transportation , medication admin. Exam & Diagnostic Data Vital Signs and I&O Vital Signs Date Time Temp Pulse Resp B/P Pulse O2 O2 Flow FiO2 Ox Delivery Rate 12/15 1548 94 Nasal 2.0L Cannula 12/15 1545 96.9 83 16 142/94 12/15 1545 96.9 83 16 142/94 94 Nasal 2.0L Cannula 12/15 0955 98.6 100 16 133/82 87 Room Air 12/15 0628 96.8 81 18 142/87 93 Room Air 12/15 0625 96.8 81 18 142/87 12/15 0625 96.8 81 18 142/87 93 Room Air 12/15 0445 97.3 88 18 143/88 12/15 0445 97.3 88 18 143/88 96 Room Air 12/15 0249 97.1 86 146/92 96 12/15 0245 97.4 87 18 141/84 12/14 2345 97.4 87 18 141/84 12/14 2345 97.4 87 18 141/84 94 12/14 2312 97.8 93 18 136/83 96 Room Air 12/14 2310 97.8 93 18 136/83 12/14 2137 96.1 98 18 161/88 12/14 2135 96.1 98 18 161/88 94 Room Air 12/14 1925 96.3 89 18 137/66 12/14 192 96.3 89 18 137/66 96 Room Air 12/14 1751 96.4 96 16 137/76 96 Room Air Intake & Output 12/15 1600 12/15 0812/15 0000 12/14 1600 12/14 0800 12/14 0000 Intake Total 1020 3560 Output Total 225 400 Balance 795 3160 Intake, IV 3500 Intake, Oral 1020 60 Output, Urine 225 400 Patient 155 lb 160 lb Weight Physical Exam: Gen: The patient is in no acute distress HEENT: Normal nose, ears, and oropharynx. Pupils equal bilaterally. Conjunctiva normal. Neck: Supple with no JVD, no masses, and no thyromegaly Lungs: Clear to auscultation with normal respiratory effort Heart: RRR, S1, S2, no murmurs. No peripheral edema, 2+ pulses in the lower extremities bilaterally Abdomen: Soft, nontender, no masses. No hepatomegaly. No splenomegaly Extremities: No clubbing or cyanosis. Normal muscle strength in the upper and lower extremities Skin: Normal skin turgor with no skin ulcers or lesions noted. Neuro: Cranial nerves intact. Sensation intact Psych: Alert and oriented 3 with appropriate affect Labs/Rl Results: Laboratory Tests 12/15 12/15 12/15 12/15 1332 1332 0600 0344 Chemistry Vitamin B12 (239 - 931 pg/mL) 583 Vit D 1,25-Dihyd Total Pending 1,25 Dihydroxy Vit D2 Pending 1,25 Dihydroxy Vit D3 Pending Coagulation PT (9.4 - 12.5 SEC) Cancelled 12.9 H INR (0.90 - 1.17) Cancelled 1.23 H 12/15 12/14 0334 2131 Chemistry Sodium (137 - 145 mmol/L) 141 Potassium (3.5 - 5.1 mmol/L) 3.5 Chloride (98 - 107 mmol/L) 105 Carbon Dioxide (22 - 30 mmol/L) 29 Anion Gap (5 - 16) 7 BUN (9 - 20 mg/dL) 5 L Creatinine (0.7 - 1.2 mg/dL) 0.5 L Estimated GFR (>60 ml/min) > 60 BUN/Creatinine Ratio (7 - 25 %) 10.0 Phosphorus (2.5 - 4.5 mg/dL) 4.1 Magnesium (1.6 - 2.3 mg/dL) 1.3 L Troponin I (<0.11 ng/ml) 0.01 Triglycerides (<150 mg/dL) 60 Cholesterol (< 200 MG/DL) 141 LDL Cholesterol, Calc (65 - 129 mg/dL) 56 L HDL Cholesterol (40 - 60 mg/dL) 73 H Cholesterol/HDL Ratio (0.00 - 4.88 %) 2 Hematology CBC w Diff NO MAN DIFF REQ WBC (4.8 - 10.8 /CUMM) 3.2 L RBC (4.70 - 6.10 /CUMM) 4.48 L Hgb (14.0 - 18.0 G/DL) 12.5 L Hct (42 - 52 %) 37.5 L MCV (80.0 - 94.0 FL) 83.7 MCH (27.0 - 31.0 PG) 27.8 RDW (11.5 - 14.5 %) 19.2 H Plt Count (130 - 400 /CUMM) 61 L MPV (7.4 - 10.4 FL) 9.2 Gran % (42.2 - 75.2 %) 49.4 Lymphocytes % (20.5 - 51.1 %) 38.9 Monocytes % (1.7 - 9.3 %) 9.6 H Eosinophils % (0 - 5 %) 1.2 Basophils % (0.0 - 2.0 %) 0.9 Absolute Granulocytes (1.4 - 6.5 /CUMM) 1.6 Absolute Lymphocytes (1.2 - 3.4 /CUMM) 1.2 Absolute Monocytes (0.10 - 0.60 /CUMM) 0.3 Absolute Eosinophils (0.0 - 0.7 /CUMM) 0 Absolute Basophils (0.0 - 0.2 /CUMM) 0 PUBS MCHC (33.0 - 37.0 G/DL) 33.3 Serology Hepatitis A IgM Ab (NONREACTIVE) NONREACTIVE Hep Bs Antigen (NONREACTIVE) NONREACTIVE Hep B Core IgM Ab Conf (NONREACTIVE) NONREACTIVE Hepatitis C Antibody (NONREACTIVE) REACTIVE H 12/145 1924 1607 1607 Chemistry Lactic Acid (0.7 - 2.1 mmol/L) 1.7 2.7 H Ammonia (9 - 30 umol/L) < 9 L Toxicology Urine Opiates Screen (>2000 NG/ML) < 100.00 Methadone Screen (>300 NG/ML) 685 H Barbiturate Screen (>200 NG/ML) < 60 Ur Phencyclidine Scrn (>25 NG/ML) < 6.00 Amphetamines Screen (>1000 NG/ML) < 100 U Benzodiazepines Scrn (>200 NG/ML) < 85 Urine Cocaine Screen (>300 NG/ML) < 50 Urine Cannabis Screen (>50 NG/ML) < 5.00 Urines Urine Color (YEL,AMB,STR) YEL Urine Clarity (CLEAR) CLEAR Urine pH (5.0 - 8.0) 7.5 Ur Specific [place] (1.001 - 1.035) 1.015 Urine Protein (NEG,<30 MG/DL) 30 H Urine Ketones (NEG) NEG Urine Nitrite (NEG) NEG Urine Bilirubin (NEG) NEG Urine Urobilinogen (0.1 - 1.0 EU/dl) 1.0 Ur Leukocyte Esterase (NEG) NEG Ur Microscopic SEDIMENT EXAMINED Urine RBC (0 - 5 /HPF) RARE Urine WBC (0 - 2 /HPF) RARE Ur Epithelial Cells (NONE,FEW) RARE Urine Hemoglobin (NEG) NEG Urine Glucose (N MG/DL) NEG 12/14 12/14 1607 1545 Chemistry Sodium (137 - 145 mmol/L) 145 Potassium (3.5 - 5.1 mmol/L) 3.6 Chloride (98 - 107 mmol/L) 98 Carbon Dioxide (22 - 30 mmol/L) 33 H Anion Gap (5 - 16) 15 BUN (9 - 20 mg/dL) 6 L Creatinine (0.7 - 1.2 mg/dL) 0.6 L Estimated GFR (>60 ml/min) > 60 BUN/Creatinine Ratio (7 - 25 %) 10.0 Glucose (65 - 99 mg/dL) 101 H Calcium (8.4 - 10.2 mg/dL) 8.8 Phosphorus (2.5 - 4.5 mg/dL) 4.5 Magnesium (1.6 - 2.3 mg/dL) 1.7 Total Bilirubin (0.2 - 1.3 mg/dL) 0.6 Direct Bilirubin (< 0.4 mg/dL) 0.5 H AST (17 - 59 U/L) 248 H ALT (21 - 72 U/L) 169 H Alkaline Phosphatase (< 127 U/L) 129 H Troponin I (<0.11 ng/ml) < 0.01 Total Protein (6.3 - 8.2 g/dL) 8.3 H Albumin (3.5 - 5.0 g/dL) 4.4 Globulin (1.9 - 4.2 gm/dL) 3.9 Albumin/Globulin Ratio (1.1 - 2.2 %) 1.1 Amylase (30 - 110 U/L) 81 Lipase (23 - 300 U/L) 1040 H Hematology CBC w Diff MAN DIFF ORDERED WBC (4.8 - 10.8 /CUMM) 5.0 RBC (4.70 - 6.10 /CUMM) 5.66 Hgb (14.0 - 18.0 G/DL) 15.6 Hct (42 - 52 %) 46.9 MCV (80.0 - 94.0 FL) 82.8 MCH (27.0 - 31.0 PG) 27.6 RDW (11.5 - 14.5 %) 19.3 H Plt Count (130 - 400 /CUMM) 87 L MPV (7.4 - 10.4 FL) 9.4 Gran % (42.2 - 75.2 %) 55.7 Lymphocytes % (20.5 - 51.1 %) 33.8 Monocytes % (1.7 - 9.3 %) 9.9 H Eosinophils % (0 - 5 %) 0.6 Basophils % (0.0 - 2.0 %) 0 L Absolute Granulocytes (1.4 - 6.5 /CUMM) 2.8 Segmented Neutrophils (42.2 - 75.2 %) 51 Band Neutrophils (0.0 - 5.0 %) 2 Absolute Lymphocytes (1.2 - 3.4 /CUMM) 1.7 Lymphocytes (20.5 - 51.1 %) 37 Monocytes (1.7 - 9.3 %) 9 Absolute Monocytes (0.10 - 0.60 /CUMM) 0.5 Absolute Eosinophils (0.0 - 0.7 /CUMM) 0 Basophils (0.0 - 2.0 %) 1 Absolute Basophils (0.0 - 0.2 /CUMM) 0 Platelet Estimate (ADEQUATE) DECREASED Anisocytosis 1+ Microcytic Cells 1+ PUBS MCHC (33.0 - 37.0 G/DL) 33.3 Serology Virus Culture Pending Toxicology Serum Alcohol (<10 MG/DL) 418.0 Diagnostic Data EKG Results EKG tracing is independently reviewed, and reveals normal sinus rhythm at 98 with QTC [address]-T abnormality. The ST-T abnormality is significantly more prominent compared to a prior EKG from 03/20/16. CXR Results Chest x-ray: No evidence of acute cardiac or pulmonary disease Other Results Head CT: No acute intracranial hemorrhage. No acute skull fracture. Abdominal ultrasound: 1. Multiple tiny gallstones and small amount of echogenic bile are seen within the gallbladder. No superimposed specific ultrasound findings are seen to suspect acute cholecystitis. If clinical suspicion remains high, consider further assessment with HIDA scan. 2. Heterogeneous appearance of the pancreatic body and visualized portions of the head and tail. These are nonspecific findings but may be compatible with the clinical suspicion of pancreatitis. No peripancreatic fluid collections are noted. 3. No abnormal biliary dilatation. Assessment/Plan Assessment/Plan The patient is a 7-year-old male with history of paroxysmal SVT for which she has undergone 2 ablations in the past admitted for intractable nausea and vomiting secondary to methadone withdrawal and alcohol intoxication. He ruled out for CT, infarction with negative cardiac enzymes 2. He is noted to have new nonspecific abnormality on his EKG. He is noted to have hypomagnesemia, and borderline hypokalemia. Recommendations: * Supplement potassium to greater than 4.0, and magnesium to greater than 2.0. * Repeat EKG tomorrow. * Monitor on telemetry for arrhythmias. * Echocardiogram. Consult Acknowledgment - Thank you for your consult request.
--- NOTE | 2016-12-15 18:33 | NUR ---
PT ARRIVED TO FROM ER APPROX 1700. PT IS A TELE HOLD. PT IS ALERT AND ORIENTED, TREMULOUS, CIWA 3 FOR TREMORS. PT IS NSR ON THE MONITOR IN THE 80'S, BP 140/82. PT WAS PLACED ON 3L NC FOR AN O2 SAT 88 ON RA. PT STARTED ON A REGULAR DIET AND IS TOLERATING W/ NO ISSUES. PT ORIENTED TO ROOM AND CALL [facility] SYSTEM. CALL MAG[facility]RE IS WITHIN REACH AND SIDE RAILS UP. PT IS PLACED ON DROPLET PRECAUTIONS FOR FLU SWAB.
[2016-12-16] VITALS: BP 130/88; BP 132/88
--- NOTE | 2016-12-16 00:22 | NUR ---
PT SLEEPY BUT EASILY AROUSABLE. DENIES PAIN AT THIS TIME. NSR 80'S, MANUAL BP 132/88. SATURATION 97% ON 3L, LUNGS SOUND CLEAR. COOPERATIVE. GETS ATIVAN Q8H.
[2016-12-16 06:24] LABS: ABSOLUTE BASOPHIL COUNT 0 /CUMM (0.0-0.2); ABSOLUTE EOSINOPHIL COUNT 0.1 /CUMM (0.0-0.7); ABSOLUTE GRANULOCYTE CT 3.4 /CUMM (1.4-6.5); ABSOLUTE LYMPH COUNT 1.4 /CUMM (1.2-3.4); ABSOLUTE MONOCYTE COUNT 0.4 /CUMM (0.10-0.60); BASOPHIL % 0.4 % (0.0-2.0); EOSINOPHIL % 1.8 % (0-5); GRANULOCYTE % 64.7 % (42.2-75.2); HEMATOCRIT 37.5 % (42-52); MEAN CORPUSCULAR HGB 27.7 PG (27.0-31.0); MEAN CORPUSCULAR HGB CONC 32.9 G/DL (33.0-37.0); MEAN CORPUSCULAR VOLUME 84.2 FL (80.0-94.0); MEAN PLATELET VOLUME 9.9 FL (7.4-10.4); RBC DISTRIBUTION WIDTH 18.3 % (11.5-14.5); RED BLOOD CELL CT 4.45 /CUMM (4.70-6.10)
[2016-12-16 06:26] LABS: WHITE BLOOD CELL COUNT 5.3 /CUMM (4.8-10.8)
[2016-12-16 06:27] LABS: PLATELET COUNT 48 /CUMM (130-400)
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
[2016-12-16 08:00] VITALS: BP 120/70
--- NOTE | 2016-12-16 09:45 | PN- Cardiology ---
Subjective Subjective: The patient is comfortable. No chest pain. No palpitations. No lightheadedness or dizziness. No nausea or vomiting. ekg monitor reveals no evidence of arrhythmias. Objective Vital Signs and I&Os Vital Signs Date Time Temp Pulse Resp B/P Pulse O2 O2 Flow FiO2 Ox Delivery Rate 12/16 0600 82 22 12/16 0400 86 22 12/16 0000 99.2 80 18 132/88 12/16 0000 97 Nasal 3.0L Cannula 12/16 0000 99.2 80 18 130/88 97 Nasal 3.0L Cannula 12/15 2200 99.0 90 10 145/96 12/15 2000 99.0 96 14 146/86 12/15 1800 99.2 100 14 140/82 12/15 1700 93 Nasal 3.0L Cannula 12/15 1548 94 Nasal 2.0L Cannula 12/15 1545 96.9 83 16 142/94 12/15 1545 96.9 83 16 142/94 94 Nasal 2.0L Cannula 12/15 0955 98.6 100 16 133/82 87 Room Air Intake & Output 12/16 1600 12/16 0800 12/16 0000 12/15 1600 12/15 0800 12/15 0000 Intake Total 878 648 6001 3560 Output Total 300 450 225 400 Balance -200 -640 892 9460 Intake, IV 0 3500 Intake, Oral 474 041 4626 60 Number 0 Bowel Movements Output, Urine 300 450 225 400 Patient 155 lb 155 lb Weight Physical Exam: Gen: The patient is in no acute distress HEENT: Normal nose, ears, and oropharynx. Pupils equal bilaterally. Conjunctiva normal. Neck: Supple with no JVD, no masses, and no thyromegaly Lungs: Clear to auscultation with normal respiratory effort Heart: RRR, S1, S2, no murmurs. No peripheral edema, 2+ pulses in the lower extremities bilaterally Abdomen: Soft, nontender, no masses. No hepatomegaly. No splenomegaly Extremities: No clubbing or cyanosis. Normal muscle strength in the upper and lower extremities Skin: Normal skin turgor with no skin ulcers or lesions noted. Current Medications: Current Medications Sig/Kieran Start time Last Medication Dose Route Stop Time Status Admin Folic Acid 1 MG DAILY 12/16 1000 AC PO Gabapentin 0 .STK-MED ONE 12/15 1602 DC PO Gabapentin 0 .STK-MED ONE 12/15 1012 DC PO Gabapentin 600 MG TID 12/14 2200 AC 12/16 PO 0924 Lorazepam 2 MG Q8 12/15 1400 AC 12/16 PO 0622 Lorazepam 0 .STK-MED ONE 12/15 1320 DC PO Lorazepam 2 MG Q6 12/14 2359 DC 12/15 PO 0625 Lorazepam 0 Q1P PRN 12/14 2230 AC IV Magnesium Oxide 400 MG DAILY 12/16 1000 AC PO 12/17 1001 Magnesium Oxide 0 .STK-MED ONE 12/15 1603 DC PO Magnesium Oxide 400 MG DAILY 12/15 1532 AC 12/16 PO 0924 Methadone HCl 90 MG DAILY 12/16 1000 AC 12/16 PO 0921 Multivitamins 1 TAB DAILY 12/14 1741 AC 12/16 PO 0924 Nicotine 21 MG 1630 12/15 1630 AC 12/15 TOP 1615 Nicotine 0 .STK-MED ONE 12/15 1603 DC TOP Nicotine 21 MG DAILY 12/14 1632 DC 12/14 TOP 1637 Potassium Chloride 20 MEQ DAILY 12/16 1000 AC PO Potassium Chloride 0 .STK-MED ONE 12/15 1602 DC PO Potassium Chloride 20 MEQ DAILY 12/15 1535 AC 12/16 PO 0924 Testosterone 7.5 GM 1000 12/15 1000 AC 12/15 TOP 1100 Thiamine HCl 50 MG DAILY 12/16 1000 AC PO Results Last 48 Hrs of Labs/Mics: Laboratory Tests 12/16/16 0545: Anion Gap 6, Estimated GFR > 60, BUN/Creatinine Ratio 15.0, Total Bilirubin 0.7, Direct Bilirubin 0.3, AST 95 H, ALT 92 H, Alkaline Phosphatase 111, Total Protein 6.1 L, Albumin 3.0 L, CBC w Diff NO MAN DIFF REQ, RBC 4.45 L, MCV 84.2, MCH 27.7, RDW 18.3 H, MPV 9.9, Gran % 64.7, Lymphocytes % 26.2, Monocytes % 6.9, Eosinophils % 1.8, Basophils % 0.4, Absolute Granulocytes 3.4, Absolute Lymphocytes 1.4, Absolute Monocytes 0.4, Absolute Eosinophils 0.1, Absolute Basophils 0, PUBS MCHC 32.9 L 12/15/16 1800: APTT Cancelled 12/15/16 1332: Vitamin B12 583 12/15/16 1332: Vit D 1,25-Dihyd Total Pending, 1,25 Dihydroxy Vit D2 Pending, 1,25 Dihydroxy Vit D3 Pending 12/15/16 0600: PT Cancelled, INR Cancelled 12/15/16 0344: PT 12.9 H, INR 1.23 H 12/15/16 0334: Anion Gap 7, Estimated GFR > 60, BUN/Creatinine Ratio 10.0, Phosphorus 4.1, Magnesium 1.3 L, Triglycerides 60, Cholesterol 141, LDL Cholesterol, Calc 56 L , HDL Cholesterol 73 H, Cholesterol/HDL Ratio 2, CBC w Diff NO MAN DIFF REQ, RBC 4.48 L, MCV 83.7, MCH 27.8, RDW 19.2 H, MPV 9.2, Gran % 49.4, Lymphocytes % 38.9, Monocytes % 9.6 H, Eosinophils % 1.2, Basophils % 0.9, Absolute Granulocytes 1.6, Absolute Lymphocytes 1.2, Absolute Monocytes 0.3, Absolute Eosinophils 0, Absolute Basophils 0, PUBS MCHC 33.3, Hepatitis A IgM Ab NONREACTIVE, Hep Bs Antigen NONREACTIVE, Hep B Core IgM Ab Conf NONREACTIVE, Hepatitis C Antibody REACTIVE H 12/14/161: Troponin I 0.01 12/14/162034: Urine Opiates Screen < 100.00, Methadone Screen 685 H, Barbiturate Screen < 60, Ur Phencyclidine Scrn < 6.00, Amphetamines Screen < 100, U Benzodiazepines Scrn < 85, Urine Cocaine Screen < 50, Urine Cannabis Screen < 5.00, Urine Color YEL, Urine Clarity CLEAR, Urine pH 7.5, Ur Specific [place] 1.015, Urine Protein 30 H, Urine Ketones NEG, Urine Nitrite NEG, Urine Bilirubin NEG, Urine Urobilinogen 1.0, Ur Leukocyte Esterase NEG, Ur Microscopic SEDIMENT EXAMINED, Urine RBC RARE , Urine WBC RARE, Ur Epithelial Cells RARE, Urine Hemoglobin NEG, Urine Glucose NEG 12/14/16 1924: Lactic Acid 1.7 12/14/16 1607: Lactic Acid 2.7 H 12/14/16 1607: Ammonia < 9 L 12/14/16 1607: Anion Gap 15, Estimated GFR > 60, BUN/Creatinine Ratio 10.0, Glucose 101 H, Calcium 8.8, Phosphorus 4.5, Magnesium 1.7, Total Bilirubin 0.6, Direct Bilirubin 0.5 H, AST 248 H, ALT 169 H, Alkaline Phosphatase 129 H, Troponin I < 0.01, Total Protein 8.3 H, Albumin 4.4, Globulin 3.9, Albumin/Globulin Ratio 1.1, Amylase 81, Lipase 1040 H, CBC w Diff MAN DIFF ORDERED, RBC 5.66, MCV 82.8, MCH 27.6, RDW 19.3 H, MPV 9.4, Gran % 55.7, Lymphocytes % 33.8, Monocytes % 9.9 H, Eosinophils % 0.6, Basophils % 0 L, Absolute Granulocytes 2.8, Segmented Neutrophils 51, Band Neutrophils 2, Absolute Lymphocytes 1.7, Lymphocytes 37, Monocytes 9, Absolute Monocytes 0.5, Absolute Eosinophils 0, Basophils 1, Absolute Basophils 0, Platelet Estimate DECREASED, Anisocytosis 1+, Microcytic Cells 1+, PUBS MCHC 33.3, Serum Alcohol 418.0 12/14/16 1545: Virus Culture Pending Assessment/Plan Assessment/Plan Assessment: 1. History of paroxysmal SVT, status post ablation, no arrhythmias seen during this admission 2. Opiate withdrawal 3. Abnormal EKG 4. Ruled out for myocardial infarction 5. Hypomagnesemia Recommendations: * Echocardiogram pending * Okay to discontinue telemetry * Recheck magnesium level Continue telemetry? No
--- NOTE | 2016-12-16 12:58 | NUR ---
PT IS AWAKE AND ORIENTED TO PERSON AND PLACE. EXPRESED PLAN TO SIGN AMA THIS MORNING TO NURSING AND DOCTORS. HE ALSO CALLED FRIEND TO COME PICK HIM UP. HIS V/S ARE STABLE, HE WAS DOWNGRADED TO [facility] AND IS WAITING FOR A BED. NURSING AND DOCTORS REVIEWED POC WITH PATIENT AND STRESSED RISKS OF LEAVING AMA TODAY. THE PT WAS ALSO SEEN BY PSYCH SALES TECHNICIAN. AT PRESENT TIME PT DOES NOT HAVE CAPACITY TO SIGN AMA PER MD AND THUS SITTER WAS ORDERED. RATIONALE EXPLAINED TO PATIENT AND HE CALMED THE MOORNING PROGRESED. SEEN BY PHYSICAL THERAPY AND THE PATIENT IS AMBULATORY TO WITH ASSIST OF ONE. HE IS TOLERATING HIS DIET WELL, RATES HIS CHRONIC PAIN A 2 .
--- NOTE | 2016-12-16 15:50 | NUR ---
Referral received yesterday via electronic service order dispatcher chief. This patient is a 61 year old man, admitted to the hospital on 12/14/16 with ETOH Withdrawal and impending DT's. Met with patient yesterday while in the ED. Also present at that time was psychiatric SALES FORECAST ANALYST and patients friend, Ciara. Patient has a significant medical history including a TBI with short term memory loss; methadone dependence for pain control and extensive surgery on his spine. Ciara had multiple requests yesterday including concerns about how she would be able to become his medical decision maker. Different processes reviewed; uncertain to what extent patient would understand and be able to provide informed consent regarding either of these processes. Additionally, Ciara was interested in Booker going to inpatient ETOH Rehab- again, lack of insurance (medicare) coverage for this benefit reviewed. Today, patient seen by PT in [facility]- STR recommended as aftercare plan. Patient has been to [facility] in the past. Will follow; collaborate with case management and psychiatry for appropriate disposition plan.
--- NOTE | 2016-12-16 16:44 | NUR ---
PT REMAINS ALERT AND ORIENTED. EATING WELL. STABLE FOR TRANFER TO FLOOR. REPORT CALLED, DROPLET PRECAUTIONS MAINTAINED, TRANSFERRED VIA W/C.
[2016-12-17 00:16] VITALS: BP 160/100
--- NOTE | 2016-12-17 00:32 | NUR ---
BP 160/100 SENT TEXT ADVISING CURRICULUM CONSULTANT LENS CUTTER. WILL CONTINUE TO MONITOR PT.
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
[2016-12-17 08:45] VITALS: BP 140/88
--- NOTE | 2016-12-17 12:41 | ECHOCARDIOGRAM REPORT ---
CLARENCE BLAKELY Age: 61 : 1955 Gender: M Exam Date: 12/16/2016 14:26 Exam Location: [facility] Ht (in): 68 Wt (lb): 160 BSA: 1.87 BP: 120 / 70 Ordering Physician: MAMIE BUGROS MD Referring Physician: Kelvin Stanley MD Technologist: Mally Rendon [facility] Room Number: 110 Indications: LIGHTHEADEDNESS Rhythm: Sinus Technical Quality: Good FINDINGS Left Ventricle Normal size left ventricle. Normal left ventricular wall thickness. Normal left ventricular ejection fraction visually estimated at > 60%. No obvious regional wall motion abnormalities. Abnormal relaxation filling pattern of the left ventricle for age (stage 1 diastolic dysfunction). Right Ventricle Normal right ventricular size and function. Right Atrium Normal right atrial size. Left Atrium Normal left atrial size. Mitral Valve Mild mitral annular calcification. Trace mitral regurgitation. Aortic Valve Aortic valve mildly thickened. No aortic stenosis. No aortic regurgitation. Tricuspid Valve Tricuspid valve not well visualized, grossly normal. Mild tricuspid regurgitation. No evidence of pulmonary hypertension. Pulmonic Valve Pulmonic valve not well visualized, grossly normal. Trace pulmonic regurgitation. Pericardium No pericardial effusion. Great Vessels Normal size aortic root. CONCLUSIONS Normal left ventricular ejection fraction visually estimated at > 60%. Abnormal relaxation filling pattern of the left ventricle for age (stage 1 diastolic dysfunction). Trace mitral regurgitation. Mild tricuspid regurgitation. Trace pulmonic regurgitation. Kelvin Stanley M.D. (Electronically Signed) Final Date: 17 December 2016 12:41 MEASUREMENTS (Male / Female) Normal Values 2D ECHO LV Diastolic Diameter PLAX 4.4 cm 4.2 - 5.9 / 3.9 - 5.3 cm LV Systolic Diameter PLAX 2.7 cm 2.1 - 4.0 cm LV Fractional Shortening PLAX 38.6 % 25 - 46 % LV Ejection Fraction 2D Teich 69.2 % IVS Diastolic Thickness 1.1 cm LVPW Diastolic Thickness 0.9 cm LV Relative Wall Thickness 0.5 RV Internal Dim ED PLAX 3.0 cm 1.9 - 3.8 cm LVOT Diameter 2.0 cm Aortic Root Diameter 2.9 cm LA Systolic Diameter LX 2.5 cm 3.0 - 4.0 / 2.7 - 3.8 cm LA Volume 35.0 cm 18 - 58 / 22 - 52 cm Ascending Aorta Diameter 3.1 cm DOPPLER AV Peak Velocity 116.0 cm/s AV Peak Gradient 5.4 mmHg AV Mean Velocity 85.9 cm/s AV Mean Gradient 3.0 mmHg AV Velocity Time Integral 26.7 cm LVOT Peak Velocity 117.0 cm/s LVOT Peak Gradient 5.5 mmHg LVOT Mean Velocity 81.3 cm/s LVOT Mean Gradient 3.0 mmHg LVOT Velocity Time Integral 22.8 cm LVOT Stroke Volume 71.6 cm AV Area Cont Eq vti 2.7 cm AV Area Cont Eq pk 3.2 cm MV Peak Velocity 82.7 cm/s MV Peak Gradient 2.7 mmHg MV Mean Velocity 49.8 cm/s MV Mean Gradient 1.0 mmHg Mitral E Point Velocity 63.7 cm/s Mitral A Point Velocity 79.5 cm/s Mitral E to A Ratio 0.8 MV PHT Velocity 65.9 cm/s MV Deceleration Barnwell 226.0 cm/s MV Pressure Half Time 87.5 ms MV Area PHT 2.5 cm MV Deceleration Time 190.0 ms TR Peak Velocity 278.0 cm/s TR Peak Gradient 30.9 mmHg Right Atrial Pressure 5.0 mmHg Pulmonary Artery Systolic Pressu 35.9 mmHg Right Ventricular Systolic Press 35.9 mmHg PV Peak Velocity 86.3 cm/s PV Peak Gradient 3.0 mmHg PV Mean Velocity 58.4 cm/s PV Mean Gradient 2.0 mmHg PV Velocity Time Integral 18.2 cm LV E' Lateral Velocity 8.9 cm/s Mitral E to LV E' Lateral Ratio 7.1 LV E' Septal Velocity 7.9 cm/s Mitral E to LV E' Septal Ratio 8.1
--- NOTE | 2016-12-17 15:59 | PN- Psychiatry ---
Assessment/Plan Impression: 61 DCM admitted for ETOH detox with a h/o TBI. House staff requests dispositional capacity assessment regarding discharge to rehabilitation as well as healthcare decision making capacity assessment related to early termination of ETOH detox. He is interviewed with his supportive girlfriend, Ciara, at bedside. Mental Status Exam Orientation/Presentation: Person place and situation, not oriented to date, somnolent lying in bed Mood: Euthymic Affect: Blunted Sadness: Denies Anxiety: Denies Denies SI/HI, AH/VH, PI. States and also believes they will not kill themselves. Denies Hopeless/Helpless thoughts Speech: Normal tone somewhat slowed Eye contact: Fair Thought Process: Linear Judgment/Insight: Impaired due to cognitive deficits Memory: Long-term intact significant short-term deficits In terms of dispositional capacity patient does not meet all 4 criteria satisfy capacity. * He is able to communicate a choice of going to rehabilitation or going home. * He is unable to understand all relevant information including risks and benefits of going to rehabilitation despite education at time of evaluation, only states "if I go home I'll start drinking again." * He shows some appreciation of his situation and consequences unable to state these being treated for alcohol detox. * He does not appear to be able to reason about treatment options other than stating it would be better to go to rehabilitation then to go home because if he went home he would start drinking again, which she stated often. In terms of healthcare decision-making capacity for finishing alcohol detox patient again does not meet all 4 criteria to satisfy capacity. * He understands that he has a choice to accept treatment or not accept treatment. * He is unable to state the risks of nontreatment despite education at time of evaluation including potential seizure and . * He does appear to appreciate the situation and his consequences in terms of his health * He does not appear to be able to reason about or manipulate information about treatment options again often stating that if he stops treatment he'll start drinking At this point patient states he agrees with plan to finish Ativan taper and go to rehabilitation. Differential diagnosis Alcohol use disorder Alcohol withdrawal Opiate use disorder on methadone maintenance treatment Suggestion: 1. Patient lacks healthcare dispositional capacity but is in agreement with current plan for discharge to STR. He may not leave AMA at this time, if required capacity may need to be reassessed. 2. Patient lacks healthcare decision-making capacity regarding alcohol detox and cannot discontinue treatment. He may not leave AMA at this time, if required capacity may need to be reassessed. 3. Please involve patient's long-term girlfriend and healthcare decision-making planning as he sees her as a trusted support. 4. Continue to advance Ativan taper is planned. Continue CIWA. Continue vitamin supplementation. Thank you for including psychiatry in this case we'll continue to follow. Right Hilaria APRN, pager [phone] Subjective Subjective: .
[2016-12-17 16:14] VITALS: BP 128/94
[2016-12-17 23:40] VITALS: BP 122/76
[2016-12-18] VITALS: BP 122/76
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
[2016-12-18 08:19] VITALS: BP 118/70
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
--- NOTE | 2016-12-18 11:55 | PN- Cardiology ---
Subjective Subjective: The patient is comfortable. He denies any cardiac symptoms. No chest pain. No palpitations. No diaphoresis. Objective Vital Signs and I&Os Vital Signs Date Time Temp Pulse Resp B/P Pulse O2 O2 Flow FiO2 Ox Delivery Rate 12/18 818 99.7 96 20 118/70 92 Room Air 12/18 0000 97.7 90 20 122/76 12/17 2340 97.7 90 20 122/76 95 Room Air 12/17 1614 98.5 101 17 128/94 96 Intake & Output 12/18 1600 12/18 0800 12/18 0000 12/17 1600 12/17 0800 12/17 0000 Intake Total 900 800 800 500 Output Total Balance 900 800 800 500 Intake, Oral 900 800 800 500 Physical Exam: Gen: The patient is in no acute distress HEENT: Normal nose, ears, and oropharynx. Pupils equal bilaterally. Conjunctiva normal. Neck: Supple with no JVD, no masses, and no thyromegaly Lungs: Clear to auscultation with normal respiratory effort Heart: RRR, S1, S2, no murmurs. No peripheral edema, 2+ pulses in the lower extremities bilaterally Abdomen: Soft, nontender, no masses. No hepatomegaly. No splenomegaly Extremities: No clubbing or cyanosis. Normal muscle strength in the upper and lower extremities Skin: Normal skin turgor with no skin ulcers or lesions noted. Current Medications: Current Medications Sig/Kieran Start time Last Medication Dose Route Stop Time Status Admin Folic Acid 1 MG DAILY 12/16 1000 AC 12/18 PO 0858 Gabapentin 600 MG TID 12/14 220 AC 12/18 PO 0858 Lorazepam 1 MG ONCE ONE 12/20 1000 AC PO 12/20 1001 Lorazepam 1 MG BID 12/19 1000 AC PO Lorazepam 1 MG Q8 12/18 0600 AC 12/18 PO 12/18 2200 0640 Lorazepam 1.5 MG Q8 12/17 06 DC 12/17 PO 12/17 220 2312 Lorazepam 0 Q1P PRN 12/14 2230 AC IV Magnesium Chloride 64 MG DAILY 12/18 1000 AC 12/18 PO 0858 Magnesium Oxide 400 MG DAILY 12/15 1532 DC 12/17 PO 0928 Methadone HCl 90 MG DAILY 12/16 1000 AC 12/18 PO 0859 Multivitamins 1 TAB DAILY 12/14 1741 AC 01/19 PO 0858 Nicotine 21 MG 1630 12/15 1630 12/17 TOP 1617 Potassium Chloride 20 MEQ DAILY 12/15 1535 DC 12/17 PO 0927 Testosterone 7.5 GM 1000 12/15 1000 AC 12/18 TOP 0859 Thiamine HCl 50 MG DAILY 12/16 1000 AC 12/18 PO 0858 Results Last 48 Hrs of Labs/Mics: Laboratory Tests 12/18/16 0705: Anion Gap 8, Estimated GFR > 60, BUN/Creatinine Ratio 20.0, Magnesium 1.5 L 12/17/16 0738: Anion Gap 8, Estimated GFR > 60, BUN/Creatinine Ratio 16.7, Magnesium 1.4 L, Total Bilirubin 0.7, Direct Bilirubin 0.4, AST 67 H, ALT 76 H, Alkaline Phosphatase 132 H, Total Protein 7.0, Albumin 3.5 Recent Imaging Studies: Echocardiogram: Normal left ventricular ejection fraction visually estimated at > 60%. Abnormal relaxation filling pattern of the left ventricle for age (stage 1 diastolic dysfunction). Trace mitral regurgitation. Mild tricuspid regurgitation. Trace pulmonic regurgitation. Assessment/Plan Assessment/Plan Assessment: 1. History of paroxysmal SVT, status post ablation, no arrhythmias seen during this admission 2. Opiate withdrawal 3. Abnormal EKG 4. Ruled out for myocardial infarction 5. Unremarkable echocardiogram Recommendations: * No further inpatient cardiac workup. * Follow up in one to 2 weeks after discharge. * Will arrange for stress testing as an outpatient for evaluation of abnormal EKG Continue telemetry? Not applicable
[2016-12-18] MEDS ORDERED: ATIVAN1 M1 PO (15:02)
[2016-12-18] MEDS ORDERED: VITAMIN B-150 M1 PO (15:03)
--- NOTE | 2016-12-18 15:04 | Patient Discharge Instructions ---
Discharge Instructions General Discharge Information You were seen/treated for: Alcohol abuse and withdrawal Special Instructions: 1. Please follow-up with your PCP within 1-2 weeks after discharge. 2. Please f/u with cardiology in one to 2 weeks after discharge for possible stress testing as an outpatient for evaluation of abnormal EKG. Diet Recommended Diet: Regular Activity Activity Self Limited: Yes Acute Coronary Syndrome Inclusion Criteria At DC or during hospital stay patient has or had the following: ACS DIAGNOSIS No Discharge Core Measures Meds if any: Prescribed or Continued at Discharge Meds if any: NOT Prescribed or Continued at Discharge Congestive Heart Failure Inclusion Criteria At DC or during hospital stay patient has or had the following: CHF DIAGNOSIS No Discharge Core Measures Meds if any: Prescribed or Continued at Discharge Meds if any: NOT Prescribed or Continued at Discharge Cerebrovascular accident Inclusion Criteria At DC or during hospital stay patient has or had the following: CVA/TIA Diagnosis No Discharge Core Measures Meds if any: Prescribed or Continued at Discharge Meds if any: NOT Prescribed or Continued at Discharge Venous thromboembolism Inclusion Criteria VTE Diagnosis No VTE Type NONE VTE Confirmed by (Test) NONE Discharge Core Measures - Per Current guidelines, there needs to be overlap - treatment for the first 5 days of Warfarin therapy. - If discharged on Warfarin prior to 5 days of - overlap therapy, the patient will need to be - assessed for post discharge needs including - *Post discharge parental anticoagulation - *Warfarin and/or parental anticoagulation education - *Follow up date to check INR post discharge At least 5 days overlap therapy as Inpatient No Meds if any: Prescribed or Continued at Discharge Note: Overlap Therapy is Warfarin and Anticoagulant Meds if any: NOT Prescribed or Continued at Discharge
[2016-12-18 16:13] VITALS: BP 110/58
[2016-12-18 23:40] VITALS: BP 125/76
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
[2016-12-19 08:23] VITALS: BP 121/78
[2016-12-19] MEDS ORDERED: SLOW-MAG71.5 MG PO (08:53)
[2016-12-19] MEDS ORDERED: ATIVAN1 M1 PO (08:56)
[2016-12-19 16:09] VITALS: BP 116/64
[2016-12-20 00:14] VITALS: BP 118/78
[2016-12-20 08:10] VITALS: BP 116/87
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
[2016-12-20 16:00] VITALS: BP 112/80
[2016-12-20 16:01] VITALS: BP 112/80
[2016-12-20 23:53] VITALS: BP 130/78
[2016-12-21] VITALS: BP 130/78
[2016-12-21 08:14] VITALS: BP 133/77
[2016-12-21 09:06] VITALS: BP 133/77
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
--- NOTE | 2016-12-22 10:54 | NUR ---
Late Entry: Aware of patients discharge yesterday to [facility] for [facility]. Case discussed with case liner Aura Montanez on 12/19/16. [facility] to collaborate with [facility] for methadone along with patients friend, Ciara, who has been assisting him with his transition. Friend Ciara is still hopeful that after Booker completes his rehab, that he will go to residential treatment for ETOH dependence. For this patient, this is not a medicare covered service, and there is only one facility in the [facility] that I am aware of that would be able to accomodate him and that is [facility] in [place], [place] This agency has almaz $$ for medicare covered individuals to come for treatment. [facility] methadone dispensing would need to be coordinated in advance. Ciara aware of same. Ciara and Booker had been discussing possible voluntary conservatorship last week, and I believe that Ciara's intention is to file application for same this week. I was present with Ciara and Booker as they discussed this and Booker ortizas able to "teach back", with understanding of same.
== END 2016-12-21 14:03 | DRG 896 ==
LOC: ENRESERVTM → CANRESERV → ENRESERVDT → ERH 13:24 → ENPENDDIS 19:34 → ERHI 19:34 → 2NB 19:34 → CRI 19:34 → EDBEDREQ 20:55 → ERHI 12-15 10:16 → CRI 12-15 16:50 → 2NB 12-16 16:30
PROVIDERS: Internal Medicine; Physician Assistant; Student in an Organized Health Care Education/Training Program; ADMIT Student in an Organized Health Care Education/Training Program
DX: F10.239 Alcohol dependence with withdrawal, unspecified (principal); K85.90 Acute pancreatitis without necrosis or infection, unspecified; F11.20 Opioid dependence, uncomplicated; D69.6 Thrombocytopenia, unspecified; E87.2 Acidosis; E83.42 Hypomagnesemia; J09.X2 Influenza due to identified novel influenza A virus with other respiratory manifestations; F17.210 Nicotine dependence, cigarettes, uncomplicated; Z87.820 Personal history of traumatic brain injury
CPT/HCPCS: 2NBP; CCU; ERO; 36415; 80307; 81001; 82436; 82652; 87040; 87045; 87071; 87804; 87804-59; 93005; 93010; 93306; 96361; 96374; 96375; 97110-GO; 97116-GO; 97161-GP; 97530-GO; 99232; 99291; G0480; J2405; J3490

== ENCOUNTER 2017-05-25 02:00 | Inpatient (IN) | payer OTHER ==
[~2017-05-25] VITALS: Ht 170.2 cm; Wt 72.6 kg
[~2017-05-25 02:00] MED LIST changes: +ASPIRIN325 M2 PO; +ATIVAN1 M1 PO; +GABAPENTIN300 M2 PO; +GABAPENTIN600 M1 PO; +METHADONE PO; +SLOW-MAG71.5 MG PO; +VITAMIN B-150 M1 PO; +VITAMIN D2000 UNI1 PO
--- NOTE | 2017-05-25 10:55 | Admission Core Measures ---
Admission Meds I reviewed the following Meds: Current Medications Sig/Kieran Start time Last Medication Dose Stop Time Status Admin Cefazolin Sodium 2,000 MG ONCE 05/25 0000 NR (Kefzol-Ancef Inj) 05/25 9759 Acute Coronary Syndrome Inclusion Criteria ACS Diagnosis No Inpatient Core Measures LDL Reminder: If No, please order W/I first 24hr of stay Congestive Heart Failure Inclusion Criteria CHF Diagnosis No Cerebrovascular accident Inclusion Criteria CVA/TIA Diagnosis No Inpatient Core Measures Bedside Swallow Eval Reminder: If BSE failed, place ST order Antithrombotic Reminder: Order Antithrombotic Medication by end of day 2 Antithrombotic Reminder: Document Reason Antithrombotic Not ordered by end of day 2 AFIB/Flutter Reminder: If Present, add to problem list AFIB/Flutter Reminder: Order Anticoag Medication for pts with AFIB/Flutter Atherosclerosis Reminder: If Present, add to problem list LDL Reminder: If No, please order W/I first 24hr of stay PT Order Reminder: If No, please order Venous thromboembolism Inpatient Core Measures VTE Risk Factors: Age > 40, Surgery No Mech VTE prophylaxis d/t No contraindications No VTE Pharm Prophylaxis d/t No contraindications Inclusion Criteria - Per Current guidelines, there needs to be overlap - treatment for the first 5 days of Warfarin therapy. - Parenteral Anticoagulation (IV or SC) needs to be - given along with Warfarin therapy. VTE Diagnosis No VTE Type NONE VTE Confirmed by (Test) NONE Problem List As ranked by this Provider includes Assessment & Plan 1. Status post total hip replacement, right HOME MEDS Home Med List Aspirin (Aspirin*) 325 MG TABLET 3 TAB PO TID PAIN (Reported) Gabapentin 600 MG TABLET 1 TAB PO TID PAIN (Reported) Testosterone (Androgel) 75 GM GEL..DYNAMITER 1 ISAÍAS TOP DAILY HRT (Reported) Trazodone HCl 100 MG TABLET 1 TAB PO QPM SLEEP (Reported)
--- NOTE | 2017-05-25 11:08 | Surgical Discharge Summary ---
Visit Information Visit Dates Admission Date: 05/25/17 Discharge Date: 05/26/17 History of Present Illness Chief Complaint: See H and P Medical History Neurological: TBI EENT: NONE Cardiovascular: CARDIAC ABLASION Gastrointestinal: NONE Hepatic: NONE Renal: NONE Musculoskeletal: CHRONIC BACK PAIN Psychiatric: alcohol dependence, anxiety Endocrine: NONE Blood Disorders: NONE Cancer(s): NONE History of MRSA: No History of VRE: No History of CDIFF: No Isolation History: Standard Surgical History Pertinent Surgical History: hip replacement, spinal fusion Family History Relations & Conditions If Any: MOTHER (Alzheimer's). FATHER (Heart disease). SISTER (Alcoholic and hypertension). Psychosocial History Who Do You Live With? Patient/Self Services at Home: None What is Your Primary Language? Sammarinese Review of Systems: See H and P Hospital Course Course Attending Physician: PUMA BORDEN MD Primary Care Physician: CLARENCE GUAMAN,[place] [facility] Course: Pt was admitted 05/25 after undergoing R THR. Post operatively he worked with PT and remained WBAT. He was able to void without difficulty. He tolerated a regular diet. His pain was controlled with a combination of IV and po medications including MS Contin 30mg po bid and Morphine IV for breakthrough pain, dilaudid 4-8mg po q4prn and his normal home dose of methadone 100mg daily. DVT ppx with ASA 325mg po bid. He was deemed stable for discharge to home with services by PT. Complications: None Allergies: Coded Allergies: Benzodiazepines (OK WITH SMALL DOSES UP TO 1-2MG Q6H PER PT 03/20/16) LARGE DOSES BUILD UP IN BODY, PT REPORTS ENDING UP ON THE FLOOR URINATING ON HIMSELF diphenhydramine (From BENADRYL) (PER PT FEELS LIKE HE'S CRAWLING OUT OF SKIN & AGITATION 03/20/16) Significant Procedures: R THR - see operative report Disposition Summary Disposition Principal Diagnosis: DJD/OA Additional Diagnosis: history of ETOH, History of narcotic abuse on methadone, hypogonadism Discharge Disposition: home health services Discharge Instructions General Discharge Information Code Status: Full Code Patient's Diet: Regular Patient's Activity: WBAT Follow-Up Instructions/Appts: Keep scheduled appointment in 6 weeks. Call sooner if needed. Medications at Discharge Discharge Medications: Continue taking these medications: Testosterone (Androgel) 75 GM GEL..PREDATORY GAME HUNTER 1 Application On the skin DAILY Comments: NOT GIVEN IN HOSPITAL [METHADONE] 100 MG LIQUID 100 Milligram ORAL DAILY Comments: Last Taken: 05/26/17 Time: 9AM Trazodone HCl (Trazodone HCl) 100 MG TABLET 1 Tablet ORAL Every night Comments: Last Taken: 05/25/17 Time: 2150PM Gabapentin (Gabapentin) 600 MG TABLET 1 Tablet ORAL THREE TIMES DAILY Comments: Last Taken: 05/26/17 Time: 630AM Aspirin (Aspirin*) 325 MG TABLET 1 Tablet ORAL TWICE DAILY Comments: Last Taken: 05/26/17 Time: 9AM Start taking the following new medications: Docusate Sodium (Colace) 100 MG CAPSULE 1 Capsule ORAL TWICE DAILY Qty = 14 No Refills Comments: Last Taken: 05/26/17 Time: 9AM Polyethylene Glycol 3350 (Miralax) 17 GRAM POWD.PACK 1 Packet ORAL DAILY Qty = 7 No Refills Instructions: dissolve in water Comments: Last Taken: 05/26/17 Time: 9AM Hydromorphone HCl (Dilaudid) 4 MG TABLET 1-2 Tablet ORAL EVERY 4 HOURS NEEDED Qty = 36 No Refills Comments: Last Taken: 05/26/17 Time: Morphine Sulfate (Ms Contin) 30 MG TABLET.ER 1 Tablet ORAL TWICE DAILY Qty = 6 No Refills Comments: Last Taken: 05/26/17 Time: 9AM Copies To: PUMA BORDEN MD
[2017-05-25] MEDS ORDERED: MIRALAX17 G1 PO (11:10)
[2017-05-25] MEDS ORDERED: DILAUDID4 M1 PO (11:10)
[2017-05-25] MEDS ORDERED: MS CONTIN30 M1 PO (11:10)
[2017-05-25] MEDS ORDERED: COLACE100 M1 PO (11:10)
--- NOTE | 2017-05-25 11:13 | Patient Discharge Instructions ---
Discharge Instructions General Discharge Information You were seen/treated for: Hip pain You had these procedures: total hip replacement Watch for these problems: temp>101, increased redness or drainage of wound Do not soak the wound: Yes No bath, but you may shower: Yes Other wound care: Keep incisions clean and dry, may shower no soaking. Diet Continue normal diet: Yes Activity Activity Self Limited: Yes Activity Limited to: Weight bear as tolerated Acute Coronary Syndrome Inclusion Criteria At DC or during hospital stay patient has or had the following: Discharge Core Measures Meds if any: Prescribed or Continued at Discharge Meds if any: NOT Prescribed or Continued at Discharge Congestive Heart Failure Inclusion Criteria At DC or during hospital stay patient has or had the following: Discharge Core Measures Meds if any: Prescribed or Continued at Discharge Meds if any: NOT Prescribed or Continued at Discharge Cerebrovascular accident Inclusion Criteria At DC or during hospital stay patient has or had the following: CVA/TIA Diagnosis No Discharge Core Measures Meds if any: Prescribed or Continued at Discharge Meds if any: NOT Prescribed or Continued at Discharge Venous thromboembolism Discharge Core Measures - Per Current guidelines, there needs to be overlap - treatment for the first 5 days of Warfarin therapy. - If discharged on Warfarin prior to 5 days of - overlap therapy, the patient will need to be - assessed for post discharge needs including - *Post discharge parental anticoagulation - *Warfarin and/or parental anticoagulation education - *Follow up date to check INR post discharge Meds if any: Prescribed or Continued at Discharge Note: Overlap Therapy is Warfarin and Anticoagulant Meds if any: NOT Prescribed or Continued at Discharge
--- NOTE | 2017-05-25 11:52 | Surg Short-stay <48hrs Dis Sum ---
Visit Information Visit Dates Admission Date: 05/25/17 Discharge Date: 05/26/2016 Surgical Short Stay DC Summary Admission Diagnosis: carotid stenosis Final Diagnosis: same, s/p R CEA Procedure(s): R CEA - see operative report Summary/Significant Findings: Pt underwent a right CEA on 05/25 and was brought to the PACU in stable condition. Overnight he remained stable. He was awake and alert without any neurologic deficits. His pain was well controlled. He was able to be discharged home. Condition at Discharge: good Discharge Disposition: home health services Discharge instructions provided to patient/family: Yes Post discharge follow-up plan: One week with dr Contreras. Call for an appointment
--- NOTE | 2017-05-25 14:11 | RADIOLOGY REPORT ---
EXAMINATION: XR HIP, RIGHT CLINICAL INFORMATION: Status post right total hip arthroplasty. COMPARISON: None TECHNIQUE: Two views of the right hip. FINDINGS: Immediate postoperative right total hip arthroplasty changes are demonstrated without evidence of immediate hardware complication or failure. Postsurgical changes including posterior instrumented fusion in the lower lumbar spine is also noted. IMPRESSION: Postoperative changes as noted.
--- NOTE | 2017-05-25 14:25 | PN- Orthopedic ---
Subjective Subjective: Post op check Awake, alert post op Denies pain currently Denies nausea No specific complaints Has not ambulated or voided yet Objective Vital Signs and I&Os s/p R THR VSS General: alert and oriented times three Chest: clear anteriorly bilaterally, RRR Abd: soft, good bs Ext: warm, no edema, positive sensate, no calf tenderness, 5/5 CHLOE BLE Wound: dressed, dry, ice pack in place Assessment/Plan Assessment/Plan 62 yo male s/p R THR Pt has a history of etoh abuse and narcotic abuse - now on methadone for 15 years Methadone dose confirmed via phone call with [facility] in [place] 100mg po daily Pt picked up his dose already this morning Continue methadone 100mg po daily beginning tomorrow Pain management: Per Dr Frey dilaudid 4-8mg po q4p MS contin 30 po bid morphine IV for breakthrough q2h prn PT - WBAT dvt ppx - asa 325mg po bid Core Measures/Miscellaneous Venous Thromboembolism VTE Risk Factors: Age > 40, Surgery VTE Contraindications: No Contraindications VTE Diagnosis: No VTE Type: NONE VTE Confirmed by (Test): NONE Beta Nish Is Beta Nish a Home Med? No Antibiotics Is Patient on Antibiotics? Yes If Yes: prophylaxis
--- NOTE | 2017-05-25 15:30 | Operative Report ---
Operative/Inv Procedure Report Surgery Date: 05/25/17 Name of Procedure: Right total hip replacement Pre-Operative Diagnosis: Primary right hip DJD Post-Operative Diagnosis: Same Estimated Blood Loss: 300 Surgeon/Nurse Transplant: SUHA BARNARD,PUMA Carrero Anesthesia: general endotracheal tube Operative/Procedure Note Note: Description of Procedure: The patient was taken to the operating room and positively identified. After induction of general anesthesia and administration of appropriate pre-operative antibiotics, the patient was positioned supine on the operating room table and all bony prominences were well padded. After performing a surgical timeout, the right lower extremity was prepped and draped in the usual sterile fashion. A direct anterior approach was made to the right hip. The incision was carried sharply through superficial soft tissues to the level of the fascia. Meticulous hemostasis was maintained with Bovie electocautery. The fascia over the tensor fascia cristhian muscle was opened sharply and the interval between the TFL and the sartorius was entered bluntly taking care to stay lateral to the lateral femoral cutaneous nerve. Retractors were placed around the femoral neck and the pericapsular fat was identified. The ascending branches of the lateral femoral circumflex vessels were identified and carefully coagulated. The pericapsular fat and anterior capsule were then resected. A napkin ring osteotomy was performed and the femoral head was removed without difficulty. Attention was then turned to the acetabulum. After appropriate placement of retractors, the acetabulum was exposed. Soft tissue was cleaned from the acetabular margin and notch. Overhanging osteophytes were removed and the teardrop was exposed. The acetabulum was then sequentially reamed to accept a 58 mm Wei Tritanium hemispherical solid back shell. This was impacted into place in the appropriate position and fitted with a 36 mm Trident X3 10 degree polyethylene insert. Attention was then turned to the femur. After performing the appropriate ligament releases, the proximal femur was exposed. It was then sequentially broached to accept a size 6 [place] accolade 2 stem. This was trialed for leg length and stability. The trial component was removed and the final component was impacted into place. The trunnion was carefully cleaned and fit with a 36 mm, +0 Biolox delta ceramic femoral head. The hip was reduced and put through a full range of motion and found to be stable. The articular space was then irrigated with sterile saline. The periarticular soft tissues were infilitrated with Marcaine. The fascial layer was closed with interrupted #1 vicryl suture and the skin was re-approximated with interrupted 2 -0 vicryl. The skin was closed with a running 3-0 V-Lock suture. Steri-strips and a sterile dressing were applied. The patient was awakened and taken to the recovery room in satisfactory condition.
[2017-05-25 17:00] VITALS: BP 110/64
[2017-05-25 19:14] VITALS: BP 90/58
--- NOTE | 2017-05-25 19:57 | NUR ---
LATE ENTRY: PATIENT ARRIVED TO FLOOR AT 1625 FROM PACU, S/P R TOTAL HIP. VS 97.8 70 18 110/64 95% ROOM AIR; A&O; LCTA; AX1 WITH RW, WALKED WITH PT; +CMS; WAITING FOR PATIENT TO VOID; IV #20 TO LH WITH D5 1/2 NS 2 100 ML/HR RUNNING; DSG TO R HIP CDI; ICE PAKS IN FREEZER, REFUSING AT THIS TIME; NEEDS WITHIN REACH, SAFETY MAINTAINED.
[2017-05-25 21:15] VITALS: BP 112/64
[2017-05-26 02:40] VITALS: BP 108/70
--- NOTE | 2017-05-26 07:04 | PN- Orthopedic ---
Subjective Subjective: The patient seen this morning postoperatively day #1. He reports that his pain is under adequate control and has no other complaints at the current time. Objective Vital Signs and I&Os Vital Signs Date Time Temp Pulse Resp B/P B/P Pulse O2 O2 Flow FiO2 Mean Ox Delivery Rate 05/26 0240 98.0 63 18 108/70 92 Room Air 05/25 2115 98.1 73 18 112/64 96 Room Air 05/25 1914 97.8 74 18 90/58 96 Room Air 05/25 1700 97.8 70 18 110/64 95 Room Air Intake & Output 05/26 0800 05/26 0000 05/25 1600 05/25 0800 05/25 0000 05/24 1600 Intake Total 3350 Output Total 650 Balance 2700 Intake, IV 2750 Intake, Oral 600 Output, Other 50 Output, Urine 600 Patient 160 lb Weight Weight Reported by Patient Measurement Method Physical Exam: Gen.: Alert and in no obvious distress Skin: Warm and dry Extremities: Bilateral lower extremities are warm without calf tenderness or significant edema. Gross motor and sensory are intact. Right hip surgical dressing is clean, dry, and intact. The thigh compartment is soft without signs of significant hematoma. Assessment/Plan Assessment/Plan Assessment: 62-year-old male status post right total hip arthroplasty postoperative day 1. The patient is progressing as expected and his pain is under adequate control. Plan: Out of bed with physical therapy Hep-Lock IV fluids Follow-up morning laboratory studies Continue current pain regiment Incentive spirometry GI and DVT prophylaxis DC home later today if cleared with PT Core Measures/Miscellaneous Venous Thromboembolism VTE Risk Factors: Age > 40, Surgery VTE Contraindications: No Contraindications VTE Diagnosis: No VTE Type: NONE VTE Confirmed by (Test): NONE Beta Nish Is Beta Nish a Home Med? No Antibiotics Is Patient on Antibiotics? No
[2017-05-26 07:25] VITALS: BP 114/72
[2017-05-26 08:44] LABS: ABSOLUTE BASOPHIL COUNT 0 /CUMM (0.0-0.2); ABSOLUTE EOSINOPHIL COUNT 0 /CUMM (0.0-0.7); ABSOLUTE GRANULOCYTE CT 11.3 /CUMM (1.4-6.5); ABSOLUTE LYMPH COUNT 1.5 /CUMM (1.2-3.4); ABSOLUTE MONOCYTE COUNT 1.1 /CUMM (0.10-0.60); BASOPHIL % 0.1 % (0.0-2.0); EOSINOPHIL % 0.1 % (0-5); GRANULOCYTE % 81.2 % (42.2-75.2); HEMATOCRIT 34.2 % (42-52); MEAN CORPUSCULAR VOLUME 87.8 FL (80.0-94.0); MEAN PLATELET VOLUME 9.1 FL (7.4-10.4); PLATELET COUNT 238 /CUMM (130-400); RBC DISTRIBUTION WIDTH 16.1 % (11.5-14.5); RED BLOOD CELL CT 3.89 /CUMM (4.70-6.10)
--- NOTE | 2017-05-26 11:48 | NUR ---
PER PATIENT "I HAVE A WALKER AND HIP KIT AT HOME FROM MY PREVIOUS SURGERY ON MY OTHER HIP"; NO RW OR HIP KIT NEEDED AT THIS TIME;
== END 2017-05-26 13:00 | disposition home health service (06) | DRG 470 ==
LOC: SDA 02:00 → ENRESERV 13:46 → ENTRNSPT 15:57 → 2NB 16:24 → CMPTRNSPT 16:39 → ENPENDDIS 05-26 10:16 → 2NB 05-26 13:00
PROVIDERS: Physician Assistant Surgical; ADMIT Orthopaedic Surgery
PROC: 0SR904A Replacement of Right Hip Joint with Ceramic on Polyethylene Synthetic Substitute, Uncemented, Open Approach (ICD-10-PCS; principal; 2017-05-25)
DX: M16.11 Unilateral primary osteoarthritis, right hip (principal); E29.1 Testicular hypofunction; M25.751 Osteophyte, right hip; F41.9 Anxiety disorder, unspecified; G89.29 Other chronic pain; M54.9 Dorsalgia, unspecified; Z98.1 Arthrodesis status; Z87.820 Personal history of traumatic brain injury; R41.3 Other amnesia; F17.210 Nicotine dependence, cigarettes, uncomplicated; F11.21 Opioid dependence, in remission; F10.20 Alcohol dependence, uncomplicated; G47.00 Insomnia, unspecified
CPT/HCPCS: 73502-RT; 82436; 97110-GO; 97116-GO; 97161-GP; 97530-GO; C9399; J0690; J0735; J1100; J2405; J7042